=== PATIENT | male | born 1980 | race Caucasian/White ===

== ENCOUNTER → 2021-07-19 02:42 | Outpatient (CLI) | payer OTHER, SELFPAY ==
[2021-07-19 16:22] LABS: SARS-CoV-2 RNA PCR Negative
== END ==
PROVIDERS: PCP Nurse Practitioner Family; Visit Provider Internal Medicine Gastroenterology
DX: Z01.812 Encounter for preprocedural laboratory examination (principal); Z20.822 Contact with and (suspected) exposure to COVID-19
CPT/HCPCS: C9803; U0003; U0005

== ENCOUNTER 2021-07-21 08:32 | Outpatient (CLI) | payer OTHER, SELFPAY ==
--- NOTE | 2021-07-21 12:00 | NEURO_ITS ---
Impression: # Complains of numbness of hands. # Mild evolving Carpal Tunnel Syndrome, left more than right. # No ulnar neuropathy. # Normal needle/EMG exam. Nerve Conduction Studies Anti Sensory Summary Table Stim Site NR Peak (ms) P-T Amp (?V) Site1 Site2 Delta-P (ms) Dist (cm) Gianfranco (m/s) Left Median Anti Sensory (2-3nd Digit) Wrist 3.0 45.6 Wrist 2-3nd Digit 3.0 14.0 47 Wrist 3.1 60.9 Wrist 2-3nd Digit 3.0 14.0 47 Right Median Anti Sensory (2-3nd Digit) Wrist 3.3 48.0 Wrist 2-3nd Digit 3.3 14.0 42 Wrist 3.4 41.8 Wrist 2-3nd Digit 3.3 14.0 42 Left Radial Anti Sensory (Base 1st Digit) Wrist 2.0 23.0 Wrist Base 1st Digit 2.0 0.0 Right Radial Anti Sensory (Base 1st Digit) Wrist 2.3 24.4 Wrist Base 1st Digit 2.3 0.0 Left Ulnar Anti Sensory (5th Digit) Wrist 2.4 61.5 Wrist 5th Digit 2.4 14.0 58 Right Ulnar Anti Sensory (5th Digit) Wrist 2.3 22.7 Wrist 5th Digit 2.3 14.0 61 Motor Summary Table Stim Site NR Onset (ms) O-P Amp (mV) Site1 Site2 Delta-0 (ms) Dist (cm) Gianfranco (m/s) Left Median Motor (Abd Poll Brev) Wrist 3.5 3.7 Elbow Wrist 4.6 26.0 57 Elbow 8.1 3.4 Right Median Motor (Abd Poll Brev) Wrist 3.3 7.7 Elbow Wrist 4.7 27.0 57 Elbow 8.0 7.2 Left Ulnar Motor (Abd Dig Minimi) Wrist 2.3 6.7 A Elbow Wrist 4.9 31.0 63 A Elbow 7.2 5.3 Right Ulnar Motor (Abd Dig Minimi) Wrist 2.6 6.7 A Elbow Wrist 5.1 30.0 59 A Elbow 7.7 6.0 F Wave Studies NR F-Lat (ms) L-R F-Lat (ms) Left Median (Mrkrs) (Abd Poll Brev) 29.41 0.48 Right Median (Mrkrs) (Abd Poll Brev) 28.93 0.48 Left Ulnar (Mrkrs) (Abd Dig Min) 27.64 1.08 Right Ulnar (Mrkrs) (Abd Dig Min) 28.72 1.08 EMG Side Muscle Nerve Root Ins Act Fibs Amp Dur Recrt Comment Right 1stDorInt Ulnar C8-T1 Nml Nml Nml Nml Nml Right Ext Indicis Radial (Post Int) C7-8 Nml Nml Nml Nml Nml Right Ext Digitorum Radial (Post Int) C7-8 Nml Nml Nml Nml Nml Right BrachioRad Radial C5-6 Nml Nml Nml Nml Nml Right PronatorTeres Median C6-7 Nml Nml Nml Nml Nml Right Abd Poll Brev Median C8-T1 Nml Nml Nml Nml Nml Left 1stDorInt Ulnar C8-T1 Nml Nml Nml Nml Nml Left Ext Indicis Radial (Post Int) C7-8 Nml Nml Nml Nml Nml Left Ext Digitorum Radial (Post Int) C7-8 Nml Nml Nml Nml Nml Left BrachioRad Radial C5-6 Nml Nml Nml Nml Nml Left PronatorTeres Median C6-7 Nml Nml Nml Nml Nml Left Abd Poll Brev Median C8-T1 Nml Nml Nml Nml Nml MTDD
== END 2021-07-21 08:33 | disposition home or self-care (01) ==
PROVIDERS: PCP Nurse Practitioner Family; Visit Provider Nurse Practitioner Family
DX: R20.2 Paresthesia of skin (principal); G56.03 Carpal tunnel syndrome, bilateral upper limbs
CPT/HCPCS: 95886; 95911

== ENCOUNTER 2021-07-22 00:09 | Day surgery (SDC) | payer OTHER, SELFPAY ==
[2021-06-28 10:12] VITALS: BMI 33.5
[2021-07-22 08:30] VITALS: BP 122/81; PULSE 79; RESP 16; TEMP 36.8; O2SAT 98
[2021-07-22] MEDS: LACTATED RINGERS 1,000 ML 150 ML IV CONT (08:33)
--- NOTE | 2021-07-22 09:05 | P.PNAN_ITS ---
Anes - Initial Pre Proc Eval Procedure: Operation Date: 07/22/21 09:00 Proposed Procedures p Screening Colonoscopy - Jason Ferguson MD Date/Time: 07/22/21 09:05 Surgeon: Jason Ferguson MD Pre Op Diagnosis: hx of colon polyps, neoplasm Patient Data Age: 40 Gender: M Height: 1.85 m Weight: 109.8 kg Last Vital Signs Temp 36.8 C 07/22/21 08:30 Pulse 79 07/22/21 08:30 Resp 16 07/22/21 08:30 BP 122/81 07/22/21 08:30 Pulse Ox 98 07/22/21 08:30 Allergies Allergy/AdvReac Type Severity Reaction Status Date / Time No Known Allergies Allergy Verified 07/22/21 08:29 Home Medications Medication Instructions Recorded Confirmed Type No Home Medications 06/28/21 06/28/21 History Patient hx anesthesia problems: none Family hx anesthesia problems: none Results Review: All pre-operative results and documents have been reviewed as part of the pre-operative evaluation. [facility] Past Medical History Medical History (Updated 07/22/21 @ 09:05 by Alec Parra MD) Obesity Smoker Snores Surgical History Surgical History (Updated 07/22/21 @ 09:05 by Alec Parra MD) H/O colonoscopy Social History Social History Smoking packs per day: 1 Smoking cigarettes per day: 20.0 Years smoked: 23 Smoking pack-years: 23.00 Smoking status: Current every day smoker Tobacco type: cigarettes Alcohol intake: current Substance use: never Substance use type: does not use Living arrangements: with family Spiritual care concerns: No Anes - Eval Final PreProcedure Day of Procedure 07/22/21 09:05 Patient weight: obese Heart: regular rate and rhythm Lungs: clear to auscultation Airway: Mallampati scale class II Neurological: alert and oriented Last oral intake: >/= 8 hours ASA classification: III Emergent: no Anesthetic plan: proceed Anesthesia type and monitoring: general GIVS and standard monitoring Results Review: All pre-operative results and documents have been reviewed as part of the pre-operative evaluation. Informed Consent: The patient's anesthetic plan and its attendant risks and benefits were discussed with the patient/family/POA. Questions were solicited and answers provided to the satisfaction of the patient/family/POA.
--- NOTE | 2021-07-22 09:22 | P.CONGI_ITS ---
Assessment and Plan Assessment and plan (1) Encounter for screening colonoscopy: Code(s): Z12.11 - Encounter for screening for malignant neoplasm of colon Status: Acute Assessment and Plan: Patient presents for screening colonoscopy today. He may have had colon polyps 10 years ago. Further recommendations on follow-up will be given after endoscopy is accomplished. GI Consult Note Consult date/time: 07/22/21 09:22 HPI: Carson Bentley is a 40 year old male Presents for screening colonoscopy. Patient reports that his current weight appetite and bowel movements are normal. He denies abdominal pain. He has had no bleeding. Patient reports prior colonoscopy 10 years ago performed in [place]. He may have had colon polyps at that time. These records are not available for review. Patient presents today for neoplasia screening. Review of Systems Review of Systems: All systems reviewed & are unremarkable except as noted in HPI and below PMFSH Past Medical History Medical History (Updated 07/22/21 @ 09:23 by Jason Ferguson MD) Obesity Smoker Snores Surgical History Surgical History (Updated 07/22/21 @ 09:05 by Alec Parra MD) H/O colonoscopy Social History Social History Smoking packs per day: 1 Smoking cigarettes per day: 20.0 Years smoked: 23 Smoking pack-years: 23.00 Smoking status: Current every day smoker Tobacco type: cigarettes Alcohol intake: current Substance use: never Substance use type: does not use Living arrangements: with family Spiritual care concerns: No Meds Home Medications and Allergies Home Medications Medication Instructions Recorded Confirmed Type No Home Medications 06/28/21 06/28/21 History Allergies Allergy/AdvReac Type Severity Reaction Status Date / Time No Known Allergies Allergy Verified 07/22/21 08:29 Vital Signs Vital Signs - 24 hr 07/22/21 08:30 Temperature 98.2 F Pulse Rate 79 Respiratory Rate 16 Blood Pressure 122/81 Pulse Oximetry 98 Exam Narrative: Physical exam reveals patient to be alert. Vital signs stable. HEENT exam is unremarkable. Patient is anicteric. Lungs are clear to auscultation and percussion. Heart is without murmur or extra sounds. Abdominal exam bowel sounds are present soft nontender with no organomegaly. Digital external rectal exam is normal.
[2021-07-22 09:58] VITALS: BP 106/64; PULSE 62; RESP 13; O2SAT 94
[2021-07-22 10:08] VITALS: BP 106/62; PULSE 61; RESP 14; O2SAT 96
[2021-07-22 10:18] VITALS: BP 112/62; PULSE 57; RESP 20; O2SAT 97
== END 2021-07-22 10:25 | disposition home or self-care (01) ==
PROVIDERS: PCP Nurse Practitioner Family; Visit Provider Internal Medicine Gastroenterology
PROC: 0DJD8ZZ Inspection of Lower Intestinal Tract, Via Natural or Artificial Opening Endoscopic (ICD-10-PCS; CPT 45378; principal; 2021-07-22 09:00)
DX: Z12.11 Encounter for screening for malignant neoplasm of colon (principal); K64.8 Other hemorrhoids; F17.210 Nicotine dependence, cigarettes, uncomplicated; E66.9 Obesity, unspecified; Z68.31 Body mass index [BMI] 31.0-31.9, adult
CPT/HCPCS: 45378; C9803; J2704; J7120; U0003; U0005

== ENCOUNTER 2022-10-16 10:25 | Outpatient (CLI) | payer OTHER, SELFPAY ==
--- NOTE | 2022-10-16 | EST_ITS ---
Patient Info Name: Carson Bentley Age: 41 years : 1980 Gender: Male Ht: 73 in Wt: 283 lbs BSA: 2.62 m2 HR: 75 bpm BP: 116 / 72 mmHg Heart Rhythm: Sinus Rhythm Exam Date: 10/16/2022 11:13 AM Exam Location: [facility] Stress Patient Status: Outpatient Admit Date: 10/16/2022 Staff Ordering Physician: Warren, Carole PETTY Attending Provider: Warren, Carole PETTY Exercise Technologist: Sabina Bowser CT Nurse: KESHA SALGADO Exam Type: CA stress test treadmill Study Info Indications Z01.810 - Encounter for preprocedural cardiovascular examination A treadmill exercise stress test was performed. Summary 1. Normal sinus rhythm - normal ECG. 2. No abnormal ST/T wave changes with exercise. 3. Clinically and electrocardiographically negative exercise stress test at 85% of age predicted maximum heart rate. Protocol: [facility] Stress ECG Details Stage: REST Duration (min): 1 min : 40 sec Speed (mph): 0.0 Grade (%): 0 HR (bpm): 78 SBP (mmHg): 116 DBP (mmHg): 72 METS: --- Stage: REST Duration (min): 7 min : 27 sec Speed (mph): 0.0 Grade (%): 0 HR (bpm): 72 SBP (mmHg): 116 DBP (mmHg): 72 METS: --- Stage: STAGE 1 Duration (min): 1 min : 0 sec Speed (mph): 1.7 Grade (%): 10 HR (bpm): 93 SBP (mmHg): 116 DBP (mmHg): 72 METS: --- Stage: STAGE 1 Duration (min): 2 min : 0 sec Speed (mph): 1.7 Grade (%): 10 HR (bpm): 104 SBP (mmHg): 116 DBP (mmHg): 72 METS: --- Stage: STAGE 1 Duration (min): 3 min : 0 sec Speed (mph): 1.7 Grade (%): 10 HR (bpm): 109 SBP (mmHg): 144 DBP (mmHg): 53 METS: --- Stage: STAGE 2 Duration (min): 1 min : 0 sec Speed (mph): 2.5 Grade (%): 12 HR (bpm): 117 SBP (mmHg): 144 DBP (mmHg): 53 METS: --- Stage: STAGE 2 Duration (min): 2 min : 0 sec Speed (mph): 2.5 Grade (%): 12 HR (bpm): 126 SBP (mmHg): 139 DBP (mmHg): 58 METS: --- Stage: STAGE 2 Duration (min): 3 min : 0 sec Speed (mph): 2.5 Grade (%): 12 HR (bpm): 129 SBP (mmHg): 139 DBP (mmHg): 58 METS: --- Stage: STAGE 3 Duration (min): 1 min : 0 sec Speed (mph): 3.4 Grade (%): 14 HR (bpm): 137 SBP (mmHg): 188 DBP (mmHg): 70 METS: --- Stage: STAGE 3 Duration (min): 2 min : 0 sec Speed (mph): 3.4 Grade (%): 14 HR (bpm): 147 SBP (mmHg): 188 DBP (mmHg): 70 METS: --- Stage: STAGE 3 Duration (min): 3 min : 0 sec Speed (mph): 3.4 Grade (%): 14 HR (bpm): 154 SBP (mmHg): 160 DBP (mmHg): 74 METS: --- Stage: RECOVERY Duration (min): 0 min : 59 sec Speed (mph): 0.0 Grade (%): 0 HR (bpm): 133 SBP (mmHg): 160 DBP (mmHg): 74 METS: --- Stage: RECOVERY Duration (min): 1 min : 59 sec Speed (mph): 0.0 Grade (%): 0 HR (bpm):
== END 2022-10-16 10:26 | disposition home or self-care (01) ==
LOC: ANHCARD 10:30
PROVIDERS: PCP Nurse Practitioner Family; Visit Provider Nurse Practitioner Family
DX: R07.9 Chest pain, unspecified (principal)
CPT/HCPCS: 93017

== ENCOUNTER 2023-08-08 19:10 | Emergency (ER) | payer OTHER, SELFPAY ==
[2023-08-08] VITALS (11 sets, daily range): BP systolic 124–157; BP diastolic 74–98; PULSE 78–91; RESP 12–25; TEMP 37.1; O2SAT 96–98
--- NOTE | ~2023-08-08 | XR_ITS ---
EXAMINATION: XR chest 2V Exam Date/Time: 08/08/2023 19:35 CDT HISTORY: cough, pain X 2-3 DAYS Comparison: None. RESULT: Lines, tubes, and devices: None. Lungs and pleura: Clear. Cardiomediastinal silhouette: Normal. Other: No acute osseous or upper abdominal finding. IMPRESSION: No acute cardiopulmonary process. Reviewed, dictated and finalized at location K.
[2023-08-08 20:01] LABS: Influenza A QL RT-PCR Negative (Negative); Influenza B QL RT-PCR Negative (Negative); RSV RNA, RT-PCR Negative (Negative); SARS-CoV-2 RNA PCR Negative (Negative)
--- NOTE | 2023-08-08 20:41 | ED.GENADULT ---
[facility] - General Adult General Chief complaint: Upper Respiratory Infection Stated complaint: Bronchitits Time Seen by Provider: 08/08/23 20:14 Source: patient Mode of arrival: ambulatory Limitations: no limitations History of Present Illness HPI narrative: This is a 42-year-old male who presents to the ED with chief complaint of URI symptoms for the past couple of days. Reports that he usually gets bronchitis every year when the weather gets cold. He is a longstanding smoker. He does not have any formal diagnosis of COPD. Reports chest pain only when he coughs. Reports cough is mainly nonproductive. Denies fevers, chills or shortness of breath. Related Data Allergies Allergy/AdvReac Type Severity Reaction Status Date / Time No Known Allergies Allergy Verified 07/22/21 08:29 Review of Systems Review of Systems: All systems as dictated in [facility] [place] Past Medical History Medical History (Updated 08/09/23 @ 00:00 by Ivette Sanders) Obesity Smoker Snores Surgical History Surgical History (Updated 07/22/21 @ 09:05 by Alec Parra MD) H/O colonoscopy Social History Social History Smoking packs per day: 1 Smoking cigarettes per day: 20.0 Years smoked: 23 Smoking pack-years: 23.00 Smoking status: Current every day smoker Tobacco type: cigarettes Alcohol intake: current Substance use: never Substance use type: does not use Living arrangements: with family Spiritual care concerns: No Exam Narrative: GENERAL: Well-appearing, well-nourished, and in no acute distress. HEAD: Normocephalic, atraumatic. EYES: PERRLA and EOMI. ENT: Nares clear, no rhinorrhea or epistaxis. Mucous membranes moist. Oropharynx without tonsillar hypertrophy exudate or other lesions. NECK: Supple. No adenopathy or masses. CHEST: No respiratory distress. Inspiratory and expiratory wheezes heard throughout all lung jesus. Saturating 98% on room air. HEART: Regular rate and rhythm. No murmur heard. Normal peripheral pulses. ABDOMEN: Soft, nontender, nondistended, normal active bowel sounds. MSK: Normal range of motion. No edema. SKIN: Warm, dry, no rash. NEURO: Alert and oriented x3. No focal deficits. PSYCH: Normal mood and affect. Course Vital Signs Vital signs: Vital Signs Temperature 98.7 F 08/08/23 19:12 Pulse Rate 91 08/08/23 19:12 Respiratory Rate 18 08/08/23 19:12 Blood Pressure 143/87 H 08/08/23 19:12 Pulse Oximetry 96 08/08/23 19:12 Oxygen Delivery Room Air 08/08/23 19:12 Temperature 98.7 F 08/08/23 19:12 Pulse Rate 91 08/08/23 22:28 Respiratory Rate 19 08/08/23 22:28 Blood Pressure 124/74 08/08/23 22:28 Pulse Oximetry 98 08/08/23 22:28 Oxygen Delivery Room Air 08/08/23 20:29 Medical Decision Making MDM Narrative Medical decision making narrative: This is a 42-year-old male who presents to the ED with chief complaint of upper respiratory symptoms for the past couple of days. Vitals are normal. Exam shows inspiratory and expiratory wheezes throughout. He is a smoker. He gets bronchitis very frequently. PERC rule negative. Chest x-ray is without acute findings. Viral swabs are negative. Symptoms consistent with bronchitis. He improved greatly with hour-long breathing treatment here. Prescriptions for albuterol and Z-Fito given. Pt will be discharged in stable condition. Return precautions given and supportive measures discussed. Pt is understanding and agreeable with plan for discharge and follow-up with PCP. Vital Signs Vital Signs: Vital Signs Temperature 98.7 F 08/08/23 19:12 Pulse Rate 91 08/08/23 19:12 Respiratory Rate 18 08/08/23 19:12 Blood Pressure 143/87 H 08/08/23 19:12 Pulse Oximetry 96 08/08/23 19:12 Oxygen Delivery Room Air 08/08/23 19:12 Temperature 98.7 F 08/08/23 19:12 Pulse Rate 91 08/08/23 22:28 Respiratory Rate 19
[2023-08-08] MEDS: ALBUTEROL SULFATE NEB 2.5 MG/3 ML INH 10 MG INHALATION (20:55)
[2023-08-08] MEDS: IPRATROPIUM BR 0.02% INH SOLN 0.5 MG/2.5 ML VIAL 1.5 MG INHALATION (20:56)
== END 2023-08-08 22:30 | disposition home or self-care (01) ==
PROVIDERS: Emergency Medicine; Emergency Provider Physician Assistant; PCP Nurse Practitioner Family
DX: J40 Bronchitis, not specified as acute or chronic (principal); Z20.822 Contact with and (suspected) exposure to COVID-19; E66.9 Obesity, unspecified; Z68.36 Body mass index [BMI] 36.0-36.9, adult; F17.210 Nicotine dependence, cigarettes, uncomplicated
CPT/HCPCS: 71046; 87637; 94640; 99283

== ENCOUNTER 2023-08-26 13:59 | Emergency (ER) | payer OTHER, SELFPAY ==
--- NOTE | ~2023-08-26 | XR_ITS ---
EXAMINATION: XR chest 2V Exam Date/Time: 08/26/2023 14:35 FIRE PREVENTION CHIEF HISTORY: SOB DX'D WITH PNEUMONIA AND BRONCHITIS X 1 WEEK AGO Comparison: 08/08/2023. RESULT: Lines, tubes, and devices: Interbody devices at the cervical spine. Lungs and pleura: Clear. Cardiomediastinal silhouette: Stable. Other: No acute osseous or upper abdominal finding. IMPRESSION: No acute cardiopulmonary process. Reviewed, dictated and finalized at location K. PREVENTION CHIEF
--- NOTE | 2023-08-26 13:59 | ECG_ITS ---
Measurements Intervals [place] Rate: 80 P: 39 MO: 140 QRS: 36 QRSD: 86 T: 39 QT: 336 QTc: 388 Interpretive Statements SINUS RHYTHM NORMAL ECG NO PREVIOUS ECG AVAILABLE FOR COMPARISON Electronically Signed On 08-26-2023 14:34:17 MINCING MACHINE OPERATOR by Genaro Joiner D.O.
[2023-08-26 14:03] VITALS: BP 125/84; PULSE 86; RESP 18; TEMP 36.2; O2SAT 98
[2023-08-26 14:17] LABS: Basophils Percent Auto 0.4 % (0.2-1.2); Eosinophils Absolute Auto 0.1 K/mm3 (0-0.3); Eosinophils Percent Auto 1.9 % (0-4.4); Hematocrit 47.7 % (42.0-52.0); Hemoglobin 16.4 g/dL (14.0-18.0); Immature Granulocyte Absolute 0.02 K/mm3 (0.00-0.031); Immature Granulocyte Percent A 0.3 % (0-0.5); Lymphocytes Absolute Auto 1.69 K/mm3 (0.9-3.2); Lymphocytes Percent Auto 25.1 % (18.3-44.2); Mean Corpuscular HGB Conc 34.4 g/dl (32-36); Mean Corpuscular Hemoglobin 30.8 pg (26-34); Mean Corpuscular Volume 89.7 fl (80-100); Mean Platelet Volume 9.4 fl (7.4-10.4); Monocytes Absolute Auto 0.8 K/mm3 (0.1-0.6); Monocytes Percent Auto 12.1 % (2.6-8.5); Neutrophils Percent Auto 60.2 % (45.5-73.1); Platelet Count Result 204 k/mm3 (150-375); Red Blood Count 5.32 M/mm3 (4.6-6.20); Red Cell Distribution Width 12.4 % (11.5-14.5); White Blood Count 6.7 K/mm3 (4.5-10.0)
[2023-08-26 14:26] LABS: Alanine Aminotransferase 48 U/L (6-50); Albumin Level 4.3 g/dL (3.5-5.1); Alkaline Phosphatase 61 U/L (38-126); Anion Gap 8 mmol/L (8-16); Aspartate Amino Transferase 31 U/L (17-59); Bilirubin,Total 1.1 mg/dL (0.2-1.3); Blood Urea Nitrogen 13 mg/dL (9-20); Calcium 9.1 mg/dL (8.4-10.2); Carbon Dioxide 28 mmol/L (22-30); Chloride 103 mmol/L (98-107); Estimated CRCL calculation 164 ml/min; Estimated Glomerular Filt Rate > 60; Glucose 101 mg/dL (65-110); Potassium 3.9 mmol/L (3.4-5.0); Sodium 139 mmol/L (137-145)
--- NOTE | 2023-08-26 16:05 | ED.SOB ---
HPI - SOB/Dyspnea General Chief Complaint: Shortness of Breath/Dyspnea Stated Complaint: SOB Time Seen by Provider: 08/26/23 16:02 History of Present Illness HPI Narrative: Patient is a 42-year-old male who presents emergency department this afternoon complaining of persistent cough, shortness of breath and congestion. Patient states that he was seen here approximately 1 week ago and was told that he had a pneumonia and was sent home on a Z-Fito. Patient finished a full course of Cipro, however, he states that his symptoms have not completely resolved yet. Patient states that the cough and shortness of breath are mild but it congestion that is been bothering him. Patient denies any chest pain, nausea, vomiting, abdominal pain, dysuria, hematuria, constipation, diarrhea, melena, hematochezia, fevers or chills. Patient also denies any headaches, dizziness, lightheadedness, blurry visions, focal weakness, numbness and or tingling. There are no other modifying, alleviating, or precipitating factors at this time. Related Data Allergies Allergy/AdvReac Type Severity Reaction Status Date / Time No Known Allergies Allergy Verified 08/26/23 16:50 Review of Systems Review of Systems: All systems are reviewed and are negative unless stated otherwise in the HPI. PMFSH Past Medical History Medical History Obesity Smoker Snores Surgical History Surgical History H/O colonoscopy Social History Social History Smoking packs per day: 1 Smoking cigarettes per day: 20.0 Years smoked: 23 Smoking pack-years: 23.00 Smoking status: Current every day smoker Tobacco type: cigarettes Alcohol intake: current Substance use: never Substance use type: does not use Living arrangements: with family Spiritual care concerns: No Exam Narrative: General: Alert, awake, afebrile, in no acute distress. HEENT: PERRL, no rhinorrhea, no post nasal drip, oropharynx clear. Neck: Trachea midline, no JVD, no lymphadenopathy. Cardiovascular: Regular rate and rhythm, no murmurs, rubs or gallops, no peripheral edema. Respiratory: Clear to auscultation bilaterally, no tachypnea, no wheezing, no rhonchi, no rubs, no respiratory distress. Abdomen: Soft, nontender, nondistended, no rebound, no guarding, no peritoneal signs. Musculoskeletal: No joint swelling or deformity, normal muscle tone. Skin: No rashes or petechia, no signs of infection. Psychiatric: Alert and oriented, normal behavior and judgment for situation. Neurological: Alert and oriented to person, place, and time. Follows all commands. No focal deficits, speech is clear and fluent. Course Vital Signs Vital signs: Vital Signs Temperature 97.1 F L 08/26/23 14:03 Pulse Rate 86 08/26/23 14:03 Respiratory Rate 18 08/26/23 14:03 Blood Pressure 125/84 08/26/23 14:03 Pulse Oximetry 98 08/26/23 14:03 Temperature 97.1 F L 08/26/23 14:03 Pulse Rate 86 08/26/23 14:03 Respiratory Rate 18 08/26/23 14:03 Blood Pressure 125/84 08/26/23 14:03 Pulse Oximetry 98 08/26/23 14:03 MDM - SOB/Dyspnea MDM Narrative Medical decision making narrative: The patient was evaluated by myself in the emergency department. History is obtained from patient who is an independent historian and physical exam was performed. External medical records were reviewed at this time. IV was established and pertinent tests were ordered. EKG was obtained which revealed sinus rhythm at a rate of 80 beats per minute. No ST changes, T wave inversions or evidence of acute ischemia. EKG was independently interpreted by me and is currently pending official cardiology read. Laboratory results obtained revealing no acute process. Imaging studies obtained included a repeat xray which was independently interpre
[2023-08-26 16:47] VITALS: BP 134/91; PULSE 82; RESP 19; O2SAT 97
[2023-08-26 17:00] VITALS: BP 134/93; PULSE 80; RESP 16; O2SAT 97
== END 2023-08-26 17:00 | disposition home or self-care (01) ==
PROVIDERS: Emergency Provider Emergency Medicine; PCP Nurse Practitioner Family
DX: J21.9 Acute bronchiolitis, unspecified (principal); E66.9 Obesity, unspecified; Z68.37 Body mass index [BMI] 37.0-37.9, adult; F17.210 Nicotine dependence, cigarettes, uncomplicated; Z87.01 Personal history of pneumonia (recurrent)
CPT/HCPCS: 36415; 71046; 80053; 85025; 93005; 99284

== ENCOUNTER 2023-09-23 11:15 | Emergency (ER) | payer OTHER, SELFPAY ==
[2023-09-23] VITALS (16 sets, daily range): BP systolic 107–145; BP diastolic 75–88; PULSE 67–89; RESP 16–22; TEMP 36.2–36.4; O2SAT 94–100
--- NOTE | ~2023-09-23 | XR_ITS ---
EXAMINATION: XR chest 1V portable 09/23/2023 11:39 INDICATION: Shortness of breath, dyspnea. Congestion. PROCEDURE: AP portable chest COMPARISON: 08/16/2023 FINDINGS: The lungs are clear. The cardiomediastinal silhouette is within normal limits. There are no pleural effusions. There is no pneumothorax suspected. IMPRESSION: 1: NO ACUTE CARDIOPULMONARY DISEASE. Reviewed, dictated and finalized at location A. ING MACHINE FEEDER
--- NOTE | 2023-09-23 11:48 | ED.GENADULT ---
HPI - General Adult General Chief complaint: Shortness of Breath/Dyspnea Stated complaint: diff breathing Time Seen by Provider: 09/23/23 11:25 History of Present Illness HPI narrative: 42-year-old male presents emergency department for evaluation of worsening respiratory symptoms. Patient reports approximately 1 month ago he was diagnosed with a pneumonia / bronchitis and had been starting on albuterol prednisone and a Z-Fito. Patient states after about 2 weeks he did begin to feel improved but over the course of the last week he has had worsening respiratory symptoms. He states these feel mildly different he does have cough runny eyes and sneezing which is slightly different symptoms. But patient does report some shortness of breath with this. Related Data Allergies Allergy/AdvReac Type Severity Reaction Status Date / Time No Known Allergies Allergy Verified 08/26/23 16:50 Review of Systems Review of Systems: All systems reviewed & are unremarkable except as noted in HPI and below PMFSH Past Medical History Medical History Obesity Smoker Snores Surgical History Surgical History H/O colonoscopy Social History Social History Smoking packs per day: 1 Smoking cigarettes per day: 20.0 Years smoked: 23 Smoking pack-years: 23.00 Smoking status: Current every day smoker Tobacco type: cigarettes Alcohol intake: current Substance use: never Substance use type: does not use Living arrangements: with family Spiritual care concerns: No Exam Narrative: APPEARANCE: Well appearing, no pain, no distress, well-nourished. HEAD: normocephalic, atraumatic. EYES: PERRLA/EOMI, conjunctivae clear. NOSE: Normal no drainage EARS:TMS clear with good light reflex. THROAT: Pharynx clear, no exudate. NECK: Supple. No adenopathy, no masses. RESPIRATORY: Airway patent, respirations nonlabored. Clear to auscultation bilaterally, no rales, rhonchi, wheezing. CARDIOVASCULAR: Regular rate and rhythm without murmurs rubs or gallops. ABDOMINAL: Soft, nontender, nondistended, normal bowel sounds MUSCULOSKELETAL: Moves all extremities. Strength/ROM intact, No edema, No calf tenderness. NEURO: Alert. Cranial nerves II through XII intact. Grossly intact SKIN: Warm, dry. Normal Color Course Course Emergency Course: [age] old male presenting ED for evaluation of increased cough and congestion. Patient did test positive for COVID today. Chest x-ray shows no acute cardiopulmonary abnormality. Patient was provided Tessalon Perles and an albuterol inhaler for symptom control at home. Patient was encouraged to have close follow-up with his primary care physician. Vital Signs Vital signs: Vital Signs Temperature 97.1 F L 09/23/23 11:18 Pulse Rate 87 09/23/23 11:18 Respiratory Rate 16 09/23/23 11:18 Blood Pressure 145/88 H 09/23/23 11:18 Pulse Oximetry 100 09/23/23 11:18 Oxygen Delivery Room Air 09/23/23 11:18 Temperature 97.6 F 09/23/23 11:31 Pulse Rate 67 09/23/23 13:05 Respiratory Rate 16 09/23/23 13:05 Blood Pressure 128/85 09/23/23 13:05 Pulse Oximetry 98 09/23/23 13:05 Oxygen Delivery Room Air 09/23/23 11:44 Medical Decision Making Differential Diagnosis Differential Diagnosis: Influenza, RSV, COVID, pneumonia, bronchitis Vital Signs Vital Signs: Vital Signs Temperature 97.1 F L 09/23/23 11:18 Pulse Rate 87 09/23/23 11:18 Respiratory Rate 16 09/23/23 11:18 Blood Pressure 145/88 H 09/23/23 11:18 Pulse Oximetry 100 09/23/23 11:18 Oxygen Delivery Room Air 09/23/23 11:18 Temperature 97.6 F 09/23/23 11:31 Pulse Rate 67 09/23/23 13:05 Respiratory Rate 16 09/23/23 13:05 Blood Pressure 128/85 09/23/23 13:05 Pulse Oximetry 98 09/23/23 13:05 Oxygen Delive
[2023-09-23] MEDS: ALBUTEROL SULFATE NEB 2.5 MG/3 ML INH INHALATION (11:55)
[2023-09-23 12:22] LABS: Influenza A QL RT-PCR Negative (Negative); Influenza B QL RT-PCR Negative (Negative); RSV RNA, RT-PCR Negative (Negative); SARS-CoV-2 RNA PCR Positive (Negative)
--- NOTE | 2023-09-23 13:06 | PC.NURSE ---
pt lung sounds are clear bilaterally in all quad after breathing treatment.
== END 2023-09-23 13:07 | disposition home or self-care (01) ==
PROVIDERS: Emergency Provider Emergency Medicine; PCP Nurse Practitioner Family
DX: U07.1 COVID-19 (principal); E66.9 Obesity, unspecified; Z68.36 Body mass index [BMI] 36.0-36.9, adult; F17.210 Nicotine dependence, cigarettes, uncomplicated; Z87.01 Personal history of pneumonia (recurrent)
CPT/HCPCS: 71045; 87637; 94640; 99283

== ENCOUNTER 2024-08-14 13:15 | Outpatient (CLI) | payer OTHER, SELFPAY ==
--- NOTE | ~2024-08-14 | XR_ITS ---
EXAMINATION: XR chest 2V 08/14/2024 14:30 INDICATION: Dizziness. PROCEDURE: 2 view chest COMPARISON: 09/23/2023 FINDINGS: The lungs are clear. The cardiomediastinal silhouette is within normal limits. There are no pleural effusions. There is no pneumothorax suspected. IMPRESSION: 1: NO ACUTE CARDIOPULMONARY DISEASE. Reviewed, dictated and finalized at location B. ROOM ATTENDANT
[2024-08-14 14:40] LABS: Add Urine Microscopic? NO; Appearance Urine Clear (Clear); Bilirubin Urine Negative (Negative); Blood Urine Negative (Negative); Color Urine Yellow (Yellow); Glucose Urine UA Negative (Negative); Ketones Urine Negative (Negative); Leukocyte Esterase Ur Negative LEU/UL (Negative); Nitrate Urine Negative (Negative); Protein Urine Negative (Negative); Specific Grav Ur 1.021 (1.001-1.035); Urobilinogen Urine 0.2 mg/dL (<2.0)
[2024-08-14 15:07] LABS: Prothrombin Time 13.3 Seconds (11.1-14.7)
[2024-08-14 15:08] LABS: Partial Thromboplastin Time 25.5 Seconds (22.3-36.8)
== END 2024-08-14 13:16 | disposition home or self-care (01) ==
LOC: ANHLAB 13:21
PROVIDERS: PCP Nurse Practitioner Family; Visit Provider Internal Medicine Cardiovascular Disease
DX: Z01.812 Encounter for preprocedural laboratory examination (principal); R42 Dizziness and giddiness; R55 Syncope and collapse; R06.02 Shortness of breath; R60.0 Localized edema; R06.9 Unspecified abnormalities of breathing; I87.2 Venous insufficiency (chronic) (peripheral); I86.8 Varicose veins of other specified sites; Z11.59 Encounter for screening for other viral diseases; Z13.6 Encounter for screening for cardiovascular disorders
CPT/HCPCS: 36415; 71046; 81003; 85610; 85730

== ENCOUNTER 2025-07-13 22:27 | Observation (INO) | payer OTHER, SELFPAY ==
--- OUTSIDE RECORDS SUMMARY | 2023-05-21 06:43 | XMS_ITS | Continuity of Care Document ---
Author Organization [facility] Address [address] [place] [address] Phone Care Team Providers Care Clay Digger Name Role Phone Hussein DEJESUS MD, Aroldo Unavailable Breanna vailable Allergies, Adverse Reactions, Alerts Substance Reaction Status Criticality No Known Allergies Active No Inform ation Procedures Procedure Date Special Narrative Report Medical Testimony Deposition X-ray exam Cervical 4 Or 5 Views 2022 Independent Medical Examination CLAUDIA Pre Payment Advance Directives Directive Yes / No Effective Date File Name No Information Encounters Encounter Description Practice Location Reason(s) For Visit Diagnoses Date Provider Providers Copied on Encounter [email or web address], [address], [id number], [place] tel:[phone] [facility] No Information 3 Hussein Kendrick er. [address] [facility] [address], [place], [place], [id number] , [place]. tel: [phone] [facility], [address] [facility] [address], [place], [id number], [place] tel:[phone] [facility] No Information 3 uHssein Kendrick er. [address] [facility], [facility] [address], [place], [place], [id number] , [place]. tel: [phone] [email or web address], [address], [id number], [place] tel:[phone] [facility] No Information 3 Hussein Kendrick er. [address] [facility], [place] [address], [place], [place], [id number] , [place]. tel: [phone] Independent Medical Examination CLAUDIA [facility], [address], [id number], [place] [phone] [email or web address] Claudia (chief complaint)c ervical spine (chief complaint) Cervicalgia 3 Hussein Kendrick er. [address] [facility], [place] [address], [place], [place], [id number] , [place]. tel: [phone] [email or web address], [address], [id number], [place] tel:[phone] [facility] No Information 3 Hussein Kendrick er. [address] [facility], [place] [address], [place], [place], [id number] , [place]. tel: [phone] Family History Family Member Type Diagnosis Age At Onset No Information Immunizations Vaccine Date Status Comments Pneumo (2 yrs or older)(PPV) not administered Note: pt declined ; Source: Source Unspecified influenza, injectable, quadrivalent, (3 years or older) not administered Note: pt declined ; Source: Source Unspecified Payers Payer name Insurance type Covered green party ID Authoriza tion(s) No Information Social History Type Description Quantity Date Captured Comments Sex Male Smoking Status No Information Chief Complaint And Reason For Visit No Information Reason For Referral Reason For Referral No Information Plan Of Treatment Date Type Action Status Referral Ordered: X-ray exam Cervical 4 Or 5 Views spine, cervical ordered History Of Present Illness Encounter Date Complaint History Of Prese nt Illness cervical spine Dr. Kuldeep SavageBoard Certified Orthopedic Surgeon with Fellowship [facility] [address] [facility], [address] [address] Carson Bentley is a pleasant 42-year-old male who presents as part of an independent medical examination for a work-related injuries sustained on 10/31/2022. The patient reports that he has been experiencing progressively worsening neck pain over the past year. He denies any specific injury or accident. He was unable to work during this time due to neck pain. He reports neck pain radiating down to the left shoulder, and down the left upper extremity to the elbow at that time. He does note similar complaints to the right side; however, his symptoms were worse on the left than the right. He states that he was seen by Dr. Campbell for bilateral shoulder pain. He denies numbness below the left elbow at that time. He indicates numbness and sharp pain in the left upper extremity with certain movements. He reports popping in the left shoulder. He notes intermittent pain with turning his head to the right, which limited his range of motion in the neck. This would resolve after 3 to 4 days. The patient states he also had severe headaches and migraines at that time. He indicates that the his pain that prompted surgery was 50% neck pain and 50% bilateral upper extremity pain and shoulder pain. He reports that he was working until 12/14/2022, prior to his recent surgery. The patient has trialed injections and formal physical therapy for his neck pain. He states these did not improve his symptoms. He affirms that he has previously underwent an MRI scan that was preformed at [facility].The patient reports that he did spend 1 night in the surgery center following his surgery. He wore a hard cervical collar for 2.5 weeks following surgery. He is currently wearing a soft collar daily and at night. He reports that his numbness has resolved. He does note that his achiness will return after certain motions; however, he states he has not been moving too much. He states that he had a severe headache 1.5 weeks ago. He affirms that he is able to drive without difficulty. He is off of work at this time due to recovering from surgery.The patient has a history of bilateral carpal tunnel releases, which were handled under workers' compensation. He states that his bilateral hand symptoms have significantly improved since his surgery.The patient has been employed in multiple jobs at his workplace for approximately 7 to 8 years. One of his jobs required repetitive lifting and bending from a seated position. 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 Claudia Carson comes into the office for an CLAUDIA. Functional Status Date Functional Assessmen t No Information Instructions Date Instruction Additional Infor rudy Plan of Care:Carson brown is a pleasant 42-year-old male who is status post 2-level cervical disc replacement for a diagnosis of cervicalgia and radiculopathy. Related to Cervicalgia Assessments Type Assessment Date No Information Patient Care Teams Name Effective Dates (start - stop) Status Members No Information
--- OUTSIDE RECORDS SUMMARY | 2025-03-11 13:31 | XMS_ITS | Continuity of Care Document ---
Author Organization [facility] Address [address] [place] [address] [address] [place] [address] Phone Care Team Providers Care Lagging Machine Operator Name Role Phone Arslan PT,MPT,ATC, [place] Unavailable Unavai lable Procedures Procedure Date Therapeutic Activities Neuromuscular Re-Ed Therapeutic Exercise Therapeutic Activities Neuromuscular Re-Ed Therapeutic Exercise Therapeutic Activities Neuromuscular Re-Ed Therapeutic Exercise Therapeutic Activities Neuromuscular Re-Ed Therapeutic Exercise Therapeutic Activities Neuromuscular Re-Ed Therapeutic Exercise Therapeutic Activities Neuromuscular Re-Ed Therapeutic Exercise Therapeutic Activities Neuromuscular Re-Ed Therapeutic Exercise Progress Note Therapeutic Activities Neuromuscular Re-Ed Therapeutic Exercise Therapeutic Activities Neuromuscular Re-Ed Therapeutic Exercise Therapeutic Activities Neuromuscular Re-Ed Therapeutic Exercise Therapeutic Activities Neuromuscular Re-Ed Therapeutic Exercise Therapeutic Activities Neuromuscular Re-Ed Therapeutic Exercise Therapeutic Activities Neuromuscular Re-Ed Therapeutic Exercise PT Evaluation Moderate Complexity Therapeutic Activities Neuromuscular Re-Ed Progress Note Therapeutic Activities Neuromuscular Re-Ed Therapeutic Exercise Hot or Cold Pack Therapeutic Activities Neuromuscular Re-Ed Therapeutic Exercise Hot or Cold Pack Electrical Stimulation Therapeutic Activities Therapeutic Exercise Neuromuscular Re-Ed Manual Therapy Therapeutic Activities Neuromuscular Re-Ed Therapeutic Exercise Hot or Cold Pack Manual Therapy Therapeutic Activities Neuromuscular Re-Ed Therapeutic Exercise Manual Therapy Hot or Cold Pack Therapeutic Activities Neuromuscular Re-Ed Therapeutic Exercise Manual Therapy Hot or Cold Pack PT Evaluation Moderate Complexity Therapeutic Activities Neuromuscular Re-Ed Therapeutic Exercise Manual Therapy Advance Directives Directive Yes / No Effective Date File Name No Information Encounters Encounter Description Practice Location Reason(s) For Visit Diagnoses Date Provider Providers [facility], [place], [place], [id number], [place] tel:[phone] [employer] No Information 5 Arslan Kinney [place], [place]. [facility], [place], [place], [id number], tel:[phone] [place] No Information Feb-1 9-202 5 Oh[place]orge Kush. . Referring Provider: Sai Quinonez, [id number] [place] [address], [place], [address]. tel:[phone] [facility], [address] [facility] [address], [place], [place], [id number], tel:[phone] [place] No Information Feb-1 7-202 5 Oh[place]orge Kush. . Referring Provider: Sai Quinonez, [address] [place] [address], [place], [address]. tel:[phone] [facility], [address] [address], [place], [place], [id number], [place] tel:[phone] [place] No Information Feb-1 2-202 5 Oh[place]orge Kush. . Referring Provider: Sai Quinonez, [address] [place] [address], [place], [address]. tel:[phone] [facility], [address] [facility] [address], [place], [place], [id number], [place] tel:[phone] [place] No Information Feb-1 0-202 5 Oh[place]orge Kush. . Referring Provider: Sai Quinonez, [address] [place] [address], [place], [address]. tel:[phone] [facility], [address] [address], [place], [place], [id number], [place] tel:[phone] [place] No Information Feb-0 6-202 5 Oh[place]orge Kush. . Referring Provider: Sai Quinonez, [address] [place] [address], [place], [address]. tel:[phone] [facility], [address] [facility] [address], [place], [place], [id number], [place] tel:[phone] [place] No Information Feb-0 3-202 5 Ohnesorge Kush. . Referring Provider: Sai Quinonez, [address] [place] [address], [place], [address]. tel:[phone] [facility], [address], [place], [place], [id number], [place] tel:[phone] [place] No Information 5 Ohnesorge Kush. . Referring Provider: Sai Quinonez, [id number] [place] [address], [place], [address]. tel:[phone] [facility], [address], [place], [place], [id number], [place] tel:[phone] [place] No Information 5 Ohnesorge Kush. . Referring Provider: Sai Quinonez, [address] [place] [address], [place], [address]. tel:[phone] [facility], [address] [facility] [address], [place], [place], [id number], [place] tel:[phone] [place] No Information 5 Ohnesorge Kush. . Referring Provider: Sai Quinonez, [id number] [place] [address], [place], [address]. tel:[phone] [facility] [facility] [address], [place], [place], [id number], [place] tel:[phone] [place] No Information 5 Ohnesorge Kush. . Referring Provider: Sai Quinonez, [address], [place], [address]. tel:[phone] [facility], [address], [place], [place], [id number], [place] tel:[phone] [place] No Information 5 Ohnesorge Kush. . Referring Provider: Sai Quinonez, [address], [place], [address]. tel:[phone] [facility], [address], [place], [place], [id number], [place] tel:[phone] [place] No Information 5 Ohnesorge Kush. . Referring Provider: Sai Quinonez, [address] [place] [address], [place], [address]. tel:[phone] [facility], [address] [facility], [place], [place], [id number], [place] tel:[phone] [place] No Information 5 Ohnesorge Kush. . Referring Provider: Sai Quinonez, [id number] [place] [address], [place], [address]. tel:[phone] [facility], [address] [facility] [address], [place], [place], [id number], [place] tel:[phone] [place] No Information 5 Mcdaniels [place]. , [place], [place]. Referring Provider: Sai Quinonez, [id number] [place] [address], [place], [address]. tel:[phone] [facility] [facility] [address], [place], [place], [id number], [place] tel:[phone] [place] No Information 4 Jones Paty. . Referring Provider: Sai Quinonez, [address] [place] [address], [place], [address]. tel:[phone] [facility] [facility] [address], [place], [place], [id number], [place] tel:[phone] [place] No Information 4 Mcdaniels [place]. , [place], [place]. Referring Provider: Sai Quinonez, [address], [place], [address]. tel:[phone] [facility] [facility] [address], [place], [place], [id number], [place] tel:[phone] [place] No Information 4 Ohnesorge Kush. . Referring Provider: Sai Quinonez, [address], [place], [address]. tel:[phone] [facility], [address], [id number], tel:[phone] [place] No Information 4 [facility] Referring Provider: Sai Quinonez, [address] [place] [address], [place], [address]. tel:[phone] [facility] [address], [id number], tel:[phone] [place] No Information 4 [place], [place], . Referring Provider: Sai Quinonez, [address] [place] [address], [place], [address]. tel:[phone] [facility] [address] [place] [address], [id number], tel:[phone] [place] No Information 4 [place], . Referring Provider: Sai Quinonez, [address] [place] [address], [place], [address]. tel:[phone] [facility] [address], [id number], tel:[phone] [place] No Information 4 [facility] Referring Provider: Sai Quinonez, [address] [place] [address], [place], [address]. tel:[phone] Family History Family Member Type Diagnosis Age At Onset No Information Payers Payer name Insurance type Covered libertarian ID Authoriza tion(s) Virgin [place] SP [id number] ZAttorney Payer [facility] [id number] One [employer] - Align SP 00 Social History Type Description Quantity Date Captured Comments Sex Male Smoking Status No Information Chief Complaint And Reason For Visit No Information Reason For Referral Reason For Referral No Information History Of Present Illness Encounter Date Complaint History Of Prese nt Illness No Information Functional Status Date Functional Assessmen t No Information Instructions Date Instruction Additional Infor mation No Information Assessments Type Assessment Date No Information Patient Care Teams Name Effective Dates (start - stop) Status Members No Information
--- OUTSIDE RECORDS SUMMARY | 2025-05-23 04:27 | XMS_ITS | Continuity of Care Document ---
Author Organization [facility] Address [address] [place] [address] Phone Care Team Providers Care Inspector Publications Name Role Phone Yaya DEJESUS FACC, FSCAI, Gil Unavailable Unava ilable Yaya DEJESUS FACC, FSCAI, Gil Unavailable Unava ilable Procedures Procedure Date PM/ICD REMOTE TECH SERV PM DEVICE INTERROGATE REMOTE Advance Directives Directive Yes / No Effective Date File Name No Information Encounters Encounter Description Practice Location Reason(s) For Visit Diagnoses Date Provider Providers Copied on Encounter [facility] , [address] [place] [address], [id number], tel:[phone] [facility] [place] [facility] (primary) hypertension Yaya Choe. [address] , [address] [place] [address], [id number], . tel:[phone] Referring Provider: Дмитрий Mcfarlane [address]Mart[address] Mosqueda [address] [place] [address], [address]. tel:[phone] lting Provider: Дмитрий Mcfarlane [address] [place] [address], [id number]. tel:[phone] Family History Family Member Type Diagnosis Age At Onset No Information Payers Payer name Insurance type Covered green party ID Authoriza timarlon(s) [employer] [id number] Social History Type Description Quantity Date Captured [...]
--- NOTE | ~2025-07-13 | XR_ITS ---
Examination: XR chest 2V Clinical History: cp sob Comparison: 08/14/2024 Technique: PA and Lateral Findings: Left pacemaker. Cardiomediastinal silhouette normal size and configuration. Lungs clear. No acute bony abnormality. IMPRESSION: 1. No acute cardiopulmonary findings. Reviewed, dictated and finalized at location R.
[2025-07-13 22:30] VITALS: BP 170/89; PULSE 81; RESP 16; TEMP 36.4; O2SAT 97
--- NOTE | 2025-07-13 22:30 | ECG_ITS ---
Test Date: 2025-07-13 22:35:45 Measurements Intervals [place] Rate: 84 P: 46 VT: 145 QRS: 25 QRSD: 94 T: 50 QT: 356 QTc: 423 Interpretive Statements SINUS RHYTHM BASELINE WANDER- III, AVF, V1-V4 NORMAL ECG No previous ECG available for comparison Electronically Signed On 07-14-2025 06:13:29 CDT by Genaro Joiner D.O.
[2025-07-13 23:09] LABS: Hematocrit 45.5 % (42.0-52.0); Hemoglobin 16.1 g/dL (14.0-18.0); Immature Granulocyte Percent A 0.4 % (0-0.5); Lymphocytes Absolute Auto 2.08 K/mm3 (0.9-3.2); Mean Corpuscular HGB Conc 35.4 g/dl (32-36); Mean Corpuscular Hemoglobin 30.4 pg (26-34); Mean Corpuscular Volume 85.8 fl (80-100); Nucleated Red Blood Cells Absolute Auto 0.000 K/mm3 (0.0-0.012); Nucleated Red Blood Cells Perc 0.0 % (0.0-0.2); Platelet Count Result 191 k/mm3 (150-375); Red Blood Count 5.30 M/mm3 (4.6-6.20); White Blood Count 6.8 K/mm3 (4.5-10.0)
[2025-07-13 23:14] VITALS: PULSE 79
[2025-07-13 23:15] VITALS: O2SAT 99
[2025-07-13 23:21] LABS: Alanine Aminotransferase 52 U/L (6-50); Albumin Level 4.2 g/dL (3.5-5.1); Alkaline Phosphatase 60 U/L (38-126); Anion Gap 11 mmol/L (4-12); Aspartate Amino Transferase 34 U/L (17-59); Bilirubin,Total 0.7 mg/dL (0.2-1.3); Blood Urea Nitrogen 13 mg/dL (9-20); Calcium 9.1 mg/dL (8.4-10.2); Carbon Dioxide 23 mmol/L (22-30); Chloride 104 mmol/L (98-107); Estimated CRCL calculation 144 ml/min; Estimated Glomerular Filt Rate > 60; Glucose 149 mg/dL (65-110); INR 0.9; Lipase 63 U/L (23-300); Partial Thromboplastin Time 25.4 Seconds (22.3-36.8); Potassium 3.5 mmol/L (3.4-5.0); Prothrombin Time 12.7 Seconds (11.1-14.7); Sodium 138 mmol/L (137-145); Total Protein 7.2 g/dL (6.3-8.2)
--- OUTSIDE RECORDS SUMMARY | 2025-07-13 23:28 | XMS_ITS | Clinical Summary ---
Author Organization [facility] Address [address] [place] [address] Care Team Providers Care Enrichment Specialist Name Role Phone Blanco Campbell MD Unavailable Sai Quinonez MD Unavailable [phone] Horacio Torres MD Primary Care Provider Дмитрий Javier MD Unavailable Blanco Jain MD Unavailable Allergies No known active allergies Medications IBUPROFEN ORAL Take by mouth A ctive LORazepam (ATIVAN) 0.5 mg tabletIndicatio ns:anxiety Take 1 tablet (0.5 mg total) by mouth 3 (three) times a day as needed for anxiety 10 tablet Active Additional Information Patient not taking.Reported on 07/06/2025 Active Problems Problem Noted Date Diagnosed Date Panic disorder 02/10/2025 Moderate episode of recurrent major depressive d isorder 02/10/2025 Presence of cardiac pacemaker 08/18/2024 Overview (06/10/2025): [employer] [place] Dual pacemaker DOI: 08/18/24 OS Yaya Dx: Conrad arrhythmias, symptomatic pauses. [employer] remote monitoring IRA on CPAP 07/23/2024 Assessment & Plan (01/21/2025 9:17 AM CDT): - chronic, stable sleeps with CPAP most nights with no issues - will continue in this regard Dizziness 07/07/2024 Near syncope 07/07/2024 Shortness of breath 07/07/2024 Class 3 severe obesity due t o excess calories without serious comorbidity with body mass index (BMI) of 40.0 to 44.9 in adult 03/25/2024 Assessment & Plan (02/10/2025 10:04 AM CDT): BMI Follow-up includes: nutrition counseling, exercise counseling, and education provided. 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 Assessment & Plan (10/23/2024 9:11 AM BASE FILLER OPERATOR): BMI Follow-up includes: nutrition counseling, exercise counseling, and education provided. Assessment & Plan (07/23/2024 10:42 AM CDT): BMI Follow-up includes: nutrition counseling, exercise counseling, and education provided. Assessment & Plan (04/22/2024 9:49 AM CDT): BMI Follow-up includes: nutrition counseling, exercise counseling, and education provided. Wegovy sample given Assessment & Plan (03/25/2024 11:25 AM CDT): BMI Follow-up includes: nutrition counseling, exercise counseling, and education provided. Encounter for medical examination to establish c are 03/25/2024 Overview (03/25/2024): spinal fusion next week Assessment & Plan (03/25/2024 2:01 PM CDT): A(n) initial well visit to establish care has been performed today. Gina Song is not up to date on screening tests. He is in need of hepatitis B, C and Cholesterol screening. He is up to date on needed preventative vaccinations. We discussed healthy lifestyle habits, educational material has been given. Medications reviewed, changes documented as per the medical record and discussed with patient along with risks vs benefits. Return in 1 month Snoring 12/10/2023 Venous insufficiency 10/24/2021 Varicose veins with pain 07/11/2021 Leg edema 07/11/2021 Family history of hypertension 07/11/2021 Encounters Date Type Department Care Team Description 07/06/2025 2:45 PM CDT Office Visit [facility] Cardiology at [address] [place] [phone] Harvinder Briones MD Presence of cardiac pacemaker (Primary Dx); Shortness of breath 07/06/2025 Telephone [facility] Cardiology [address] [place] [address] [address] [place] [address] Harvinder Briones MD Cath at [facility] 06/10/2025 Orders Only [facility] Cardiology [address] [facility] [address] [place] [phone] Harvinder Briones MD Presence of cardiac pacemaker (Primary Dx); Bradyarrhythmia; Sinus pause 05/21/2025 7:45 AM CDT Ancillary Procedure [facility] Cardiology at [address] [place] [address] Presence of cardiac pacemaker 05/04/2025 10:00 AM CDT Office Visit [facility] at [address] [place] [phone] Harvinder Briones MD Presence of cardiac pacemaker (Primary Dx) 05/04/2025 Telephone [facility] Cardiology [address] [facility] [address] [place] [address] Harvinder Briones MD Device Checks from Last 3 Months Immunizations Immunization Administration Dates Next Due DTP 05/19/1985, 1,05/01/1980,03/03/1980, 0 Influenza, Unspecified 07/23/2024(Deferr ed: Patient Refused),10/08/2023(Deferred: Patient Refused),04/07/2023(Deferred: Patient Refused),10/08/2022(Deferred: Patient Refused) MMR 09/26/1991,01/29/1981 OPV 06/03/1981,08/11/1980,05/01/1980 ,03/03/1980 Tdap 05/29/2020,09/05/2016 Surgical History Surgery Date Site/Laterality Comments NECK SURGERY BACK SURGERY CARPAL TUNNEL RELEASE POSTERIOR FUSION LUMBAR SPINE 10/08/2023 - 10/07/2024 L4/5 INSERT / REPLACE / REMOVE PACEMAKER Medical History Medical History Date Comments Varicose veins of both lower extremities Cardiac pacemaker Sleep apnea Sick sinus syndrome (HCC) Shortness of breath Family History Medical History Relation Name Comments Plantar fasciitis Father Skin cancer Father No Known Problems Mother No Known Problems Sister Relation Name Status Comments Father Alive Mother Alive Sister Alive Social History Tobacco Use Types Packs/Day Years Used Date Smoking Tobacco: Former Cigarettes Passive Smoke Exposure: Past Smokeless Tobacco: Never PHQ-2 Answer Date Recorded PHQ-2 Total Score (If total score is 3 or more points, staff should administer the PHQ-9) 6 02/10/2025 PHQ-9 Answer Date Recorded PHQ-9 Total Score 18 02/10/2025 Sex and Gender Information Value Date Recorded Sex Assigned at Not on file Legal Sex 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 Gender Identity Not on file Sexual Orientation Not on file Obstetrics History Last Filed Vital Signs Vital Sign Reading Time Taken Comments Blood Pressure 126/78 07/06/2025 2:32 PM CDT Pulse 75 07/06/2025 2:32 PM CDT Temperature 36 C (96.8 F) 04/01/2025 2:09 PM CDT Respiratory Rate 18 04/01/2025 2:09 PM CDT Oxygen Saturation 98% 07/06/2025 2:32 PM CDT Inhaled Oxygen Concentration - - Weight 143.4 kg (316 lb 1.6 oz) 07/06/2025 2:32 PM CDT Height 185.4 cm (6' 1) 07/06/2025 2:32 PM CDT Body Mass Index 41.7 07/06/2025 2:32 PM CDT Plan of Treatment Upcoming Encounters Date Type Department Care Team (Latest Contact Info) Description 07/24/2025 3:50 PM CDT Hospital Encounter [facility] [address] [place] [phone] Jhonatan Naqvi MD [address] [facility] [address] [place] [address] Shortness of breath 07/24/2025 3:50 PM CDT - 07/24/2025 5:10 PM CDT Surgery [address] [phone] Jhonatan Naqvi MD [address] [facility] [address] [place], [place] [phone] LEFT HEART CATHETERIZATION WITH CORONARY ANGIOGRAPHY AND WITH OR WITHOUT LEFT VENTRICULOGRAM [address] Health Maintenance Due Date Last Done Comments Colon Cancer Screening-Colonoscopy 1980 HPV Vaccines (1 - 3-dose SCDM series) 2006 Regular Well Visit/Exam 18-64 03/25/2025 03/25/2024 Influenza Vaccine (#1) 2025 Depression Screening 02/10/2026 02/10/2025, 02/10/2025, 01/21/2025, Additional history exists DTaP/Tdap/Td Vaccine (8 - Td or Tdap) 05/29/2030 05/29/2020, 09/05/2016, 05/19/1985, Additional history exists Hepatitis B Screening Completed 01/21/2025 Hepatitis C Screening Completed 01/21/2025 Pneumococcal vaccine <65 Aged Out No longer eligible based on patient's age to complete this topic Varicella Vaccines Discontinued Procedures Procedure Name Priority Date/Time Associated Diagnosis Comments NM MPI SPECT (REST AND/OR STRESS) MULTIPLE STUDIES Schedule Routine, Read Routine (OP Routine) 05/21/2025 8:54 AM CDT Presence of cardiac pacemaker HEPATITIS C ANTIBODY Routine 01/21/2025 9:21 AM CDT Need for hepatitis C screening test from Last 3 Months or Most Recently Relevant to Health Maintenance Results * NM MPI SPECT (Rest and/or Stress) Multiple Studies (05/21/2025 8:54 AM CDT) Anatomical Region Laterality Modality Body N/A Electrocardiogra phy 05/21/2025 7:45 AM CDT Narrative 05/21/2025 4:48 PM CDT [facility] [address], [place] [address] [address] [facility] [address], [place] [address], [place] [address] P:[phone] P:[phone] MPI Imaging Report Patient Name: GINA SONG W : 1980 Study Date: 05/21/2025 7:45:00 AM Gender: M Tech: COREY LOVEMT Location: [facility] Provider: HARVINDER BRIONES Height(Cm): 185.4 BSA: Weight(Kg): 141.7 Heart Rate: 149 BMI: 41.22 Order Provider: HARVINDER BRIONES PHYSICIAN: Primary Care Physician: Dr. Torres. [facility] Physician: Harvinder Briones M.D.,F.A.C.C. Stress Supervision: Simone Domínguez M.D. Stress Interpreting Physician: Simone Domínguez M.D. Image Interpreting Physician: Simone Domínguez M.D. PROCEDURES: Pharmacologic SPECT Report: Myocardial perfusion imaging with Tc99M Sestamibi SPECT at rest and stress post regadenoson (Lexiscan) infusion. INDICATIONS: Chest Pain, Shortness Of Breath, Family Hx CAD, Former Smoker, and Z95.0 Presence of cardiac pacemaker. FINDINGS: Procedural Findings: One day rest/stress was used. Tc99m Sestamibi injected IV at rest was 12.8 millicuries 37.7 millicuries of Tc99M Sestamibi injected IV during Lexiscan stress Lexiscan 0.4mg administered IV over 10 seconds. Patient had no symptoms during stress test. Baseline heart rate was 66 BPM Maximum Heart Rate Achieved was: 103 BPM Baseline blood pressure was 115/89 mmHg Post Stress Blood Pressure was 111/72 mmHg Termination: Protocol complete. Resting ECG: Normal sinus rhythm . ST-elevation, consistent with early repolarization. Post ECG: No diagnostic ST changes. Arrhythmia: No arrhythmias seen. Perfusion Findings: Abnormal perfusion imaging - see below. Technical quality of study is excellent. Left ventricle cavity size at rest is normal. Left ventricle cavity size with stress is unchanged. A TID of 0.84 was automatically calculated. defect 1: Size is small. Severity is mild. Location of defect is in the apical lateral segment. Reversibility is full. Type of defect is ischemia. LV Function: Global left ventricular function is normal. Left ventricular ejection fraction is 65 %. CONCLUSIONS: Global left ventricular function is normal. Left ventricular ejection fraction is 65 %. Size is small. Severity is mild. Location of defect is in the apical lateral segment. Reversibility is full. Type of defect is ischemia. Myocardial perfusion imaging is abnormal. Negative EKG portion of stress test. Attenuation correction utilized for the interpretation of this study. Electronically Signed By: Blanco Domínguez MD 05/21/2025 4:30:29 PM CDT Electronically Signed By: Blanco Domínguez MD 05/21/2025 4:30:29 PM CDT Procedure Note Blanco Domínguez MD - 05/21/2025 [facility] [address], [place] [address] [address] [facility] [id number], [place], [place] [phone], [place] [address] P:[phone] P:[phone] MPI Imaging Report Patient Name: GINA SONG W : 1980 Study Date: 05/21/2025 7:45:00 AM Gender: M Tech: [facility] Location: [facility] Provider: HARVINDER BRIONES Height(Cm): 185.4 BSA: Weight(Kg): 141.7 Heart Rate: 149 BMI: 41.22 Order Provider: HARVINDER BRIONES PHYSICIAN: Primary Care Physician: Dr. Torres. [facility] Physician: Harvinder Briones M.D.,F.A.C.C. Stress Supervision: Simone Domínguez M.D. Stress Interpreting Physician: Simone Domínguez M.D. Image Interpreting Physician: Simone Domínguez M.D. PROCEDURES: Pharmacologic SPECT Report: Myocardial perfusion imaging with Tc99M Sestamibi SPECT at rest and stresspost regadenoson (Lexiscan) infusion. INDICATIONS: Chest Pain, Shortness Of Breath, Family Hx CAD, Former Smoker, and Z95.0Presence of cardiac pacemaker. FINDINGS: Procedural Findings: One day rest/stress was used. Tc99m Sestamibi injected IV at rest was 12.8 millicuries 37.7 millicuries of Tc99M Sestamibi injected IV during Lexiscan stress Lexiscan 0.4mg administered IV over 10 seconds. Patient had no symptoms during stress test. Baseline heart rate was 66 BPM Maximum Heart Rate Achieved was: 103 BPM Baseline blood pressure was 115/89 mmHg Post Stress Blood Pressure was 111/72 mmHg Termination: Protocol complete. Resting ECG: Normal sinus rhythm . ST-elevation, consistent with earlyrepolarization. Post ECG: No diagnostic ST changes. Arrhythmia: No arrhythmias seen. Perfusion Findings: Abnormal perfusion imaging - see below. Technical quality of study isexcellent. Left ventricle cavity size at rest is normal. Left ventricle cavity size withstress is unchanged. A TID of 0.84 was automatically calculated. defect 1: Size is small. Severity is mild. Location of defect is in the apicallateral segment. Reversibility is full. Type of defect is ischemia. LV Function: Global left ventricular function is normal. Left ventricular ejectionfraction is 65 %. CONCLUSIONS: Global left ventricular function is normal. Left ventricular ejectionfraction is 65 %. Size is small. Severity is mild. Location of defect is in the apicallateral segment. Reversibility is full. Type of defect is ischemia. Myocardial perfusion imaging is abnormal. Negative EKG portion of stress test. Attenuation correction utilized for the interpretation of this study. Electronically Signed By: Blanco Domínguez MD 05/21/2025 4:30:29 PM CDT Electronically Signed By: Blanco Domínguez MD 05/21/2025 4:30:29 PM CDT us Harvinder Briones MD IMG NM PROCEDURES Final Result * Hepatitis C antibody Blood (01/21/2025 9:21 AM CDT) Hep C Ab Nonreactive Nonreactive Comment: Interpretive Data Nonreactive: Antibodies to HCV not detected. Does NOT exclude the possibility of recent exposure to HCV. Equivocal: Equivocal for HCV antibodies. Supplemental molecular testing will be automatically performed to determine infection status in accordance with current CDC screening recommendations. Reactive: Positive for HCV antibodies. This may represent current or past HCV infection. Supplemental molecular testing will be automatically performed to determine current infection status in accordance with current CDC screening recommendations. Interpretive data was last revised on 2019. Blood 01/21/2025 9:21 AM CDT 01/21/2025 3:38 PM CDT us Horacio Torres MD LAB MICROBIOLOGY - GENERAL ORDERABLES Final Result [facility] [address] [facility] [place] [address] from Last 3 Months or Most Recently Relevant to Health Maintenance Insurance [facility] Care Teams Enrichment Specialist Relationship Specialty Start Date End Date Horacio Torres MD [address] [place], [place] [phone] PCP - General Family Medicine 03/25/24 [place] [address] [place] [address] Consulting Physician Orthopedic Surgery 03/25/24 [place] [address] [place] [address] Orthopedic Surgery 03/25/24 [place] [address] [place] [address] Consulting Physician Cardiovascular Disease 07/23/24 [place] [address] [facility] [address] [place] [address] Referring Physician Orthopedic Surgery 02/10/25
[2025-07-13 23:30] VITALS: BP 148/89; PULSE 75; RESP 17; O2SAT 97
[2025-07-13 23:33] LABS: Troponin I < 0.012 ng/mL (0.000-0.034)
[2025-07-13] MEDS: ASPIRIN 81 MG CHEWABLE TABLET 324 MG PO (23:38)
[2025-07-13 23:41] LABS: NT Pro B Type Natriuretic Pept 42 pg/mL (19.9-100)
--- NOTE | 2025-07-13 23:45 | ED_ITS ---
HPI - General Adult General Chief complaint: Chest Pain Stated complaint: sob / htn Time Seen by Provider: 07/13/25 22:56 History of Present Illness HPI narrative: Patient 44-year-old gentleman presents emergency department with chief complaint of chest tightness palpitations and shortness of breath. The patient reports he has had a recent stress test that was positive and reports he scheduled for a cardiac catheterization on at [place]. The patient reports he sees Dr. Carmona as his primary technical administrator patient reports that he has been having increasing shortness of breath has noticed his blood pressures been running high Related Data Allergies Allergy/AdvReac Type Severity Reaction Status Date / Time No Known Allergies Allergy Verified 07/13/25 22:28 Review of Systems 2 Review of Systems: A 10 system review of systems was completed on the patient and is negative except for what is stated in the HPI. Nursing and ancillary documentation was reviewed. PMFSH Past Medical History Medical History Snores Smoker Obesity Surgical History Surgical History H/O colonoscopy Social History Social History Smoking packs per day: 1 Smoking cigarettes per day: 20.0 Years smoked: 23 Smoking pack-years: 23.00 Smoking status: Current every day smoker Tobacco type: cigarettes Alcohol intake: current Substance use: never Substance use type: does not use Living arrangements: with family Spiritual care concerns: No Exam 2 Narrative: GENERAL: Well-appearing, well-nourished, and in no acute distress. HEAD: Normocephalic, atraumatic. EYES: PERRLA and EOMI. ENT: Nares clear, no rhinorrhea or epistaxis. Mucous membranes moist. NECK: Supple. CHEST: Clear to auscultation. No respiratory distress. HEART: Regular rate and rhythm. No murmur heard. Normal peripheral pulses. ABDOMEN: Soft, nontender, nondistended, normal active bowel sounds. EXTREMITIES: Normal range of motion. No edema. SKIN: Warm, dry, no rash. NEURO: No focal deficits. Alert and oriented x3. PSYCH: Normal mood and affect. Course Vital Signs Vital signs: Vital Signs Temperature 36.4 C L 07/13/25 22:30 Pulse Rate 81 07/13/25 22:30 Respiratory Rate 16 07/13/25 22:30 Blood Pressure 170/89 H 07/13/25 22:30 Pulse Oximetry 97 07/13/25 22:30 Oxygen Delivery Room Air 07/13/25 22:30 Temperature 36.4 C L 07/13/25 22:30 Pulse Rate 77 07/14/25 00:17 Respiratory Rate 24 H 07/14/25 00:17 Blood Pressure 140/83 07/14/25 00:17 Pulse Oximetry 97 07/14/25 00:17 Oxygen Delivery Room Air 07/13/25 23:15 Medical Decision Making MDM Narrative Medical decision making narrative: Differential diagnosis includes ACS, unstable angina, Laboratory studies were obtained on the patient which were within normal limits initial troponin was negative BNP was negative Chest x-ray showed no acute abnormality EKG showed sinus rhythm with no ST elevation or ST depression Given the patient's history and the current symptoms of the patient plan will be to admit the patient for observation Vital Signs Vital Signs: Vital Signs Temperature 36.4 C L 07/13/25 22:30 Pulse Rate 81 07/13/25 22:30 Respiratory Rate 16 07/13/25 22:30 Blood Pressure 170/89 H 07/13/25 22:30 Pulse Oximetry 97 07/13/25 22:30 Oxygen Delivery Room Air 07/13/25 22:30 Temperature 36.4 C L 07/13/25 22:30 Pulse Rate 77 07/14/25 00:17 Respiratory Rate 24 H 07/14/25 00:17 Blood Pressure 140/83 07/14/25 00:17 Pulse Oximetry 97 07/14/25 00:17 Oxygen Delivery Room Air 07/13/25 23:15 Lab Data 07/13/25 22:58 07/13/25 22:58 Labs: Lab Results 07/13/25 Range/Units 22:58 WBC 6.8 (4.5-10.0) K/mm3 RBC 5.30 (4.6-6.20) M/mm3 Hgb 16.1 (14.0-18.0) g/dL Hct 45.5 (42.0-52.0) % MCV 85.8 (80-100) fl MCH 30.4 (26-34) pg MCHC 35.4 (32-36) g/dl RDW 13.0 (11.5-14.5) % Plt Count 191 (150-375) k/mm3 MPV 9.4 (7.4-10.4) fl Immature Gran % (Auto) 0.4 (0-0.5) % Neut % (Auto) 59.0 (45.5-73.1) % Lymph % (Auto) 30.6 (18.3-44.2) % Eddy % (Auto) 8.1 (2.6-8.5) % Eos % (Auto) 1.5 (0-4.4) % Baso % (Auto) 0.4 (0.2-1.2) % Lymph # (Auto) 2.08 (0.9-3.2) K/mm3 Eddy # (Auto) 0.6 (0.1-0.6) K/mm3 Eos # (Auto) 0.1 (0-0.3) K/mm3 Baso # (Auto) 0.0 (0.0-0.1) K/mm3 Abs Immat Gran (auto) 0.03 (0.00-0.031) K/mm3 Absolute Neuts (auto) 4.0 (1.3-6.7) K/mm3 Absolute Nucleated RBC 0.000 (0.0-0.012) K/mm3 Nucleated RBC % 0.0 (0.0-0.2) % PT 12.7 (11.1-14.7) Seconds INR 0.9 APTT 25.4 (22.3-36.8) Seconds Sodium 138 (137-145) mmol/L Potassium 3.5 (3.4-5.0) mmol/L Chloride 104 (98-107) mmol/L Carbon Dioxide 23 (22-30) mmol/L Anion Gap 11 (4-12) mmol/L BUN 13 (9-20) mg/dL Creatinine 0.84 (0.7-1.3) mg/dL Estim Creat Clear Calc 144 ml/min Estimated GFR > 60 (59 - ) Glucose 149 H (65-110) mg/dL Calcium 9.1 (8.4-10.2) mg/dL Total Bilirubin 0.7 (0.2-1.3) mg/dL AST 34 (17-59) U/L ALT 52 H (6-50) U/L Alkaline Phosphatase 60 (38-126) U/L Troponin I < 0.012 (0.000-0.034) ng/mL NT-Pro-B Natriuret Pep 42 (19.9-100) pg/mL Total Protein 7.2 (6.3-8.2) g/dL Albumin 4.2 (3.5-5.1) g/dL Lipase 63 (23-300) U/L Discharge Plan Discharge Clinical Impression: Chest pain Patient Disposition: Still a Patient Condition: Stable Patient Language: Citizen Of [place] Prescriptions: No Action albuterol sulfate 90 mcg/actuation HFA aerosol inhaler 1 puff inhalation QID PRN (Reason: shortness of breath or wheezing) Qty: 6.7 0RF benzonatate 100 mg capsule 100 mg PO TID PRN (Reason: cough) Qty: 14 0RF azithromycin [Zithromax Z-Fito] 250 mg tablet See Rx Instructions .ROUTE .COMPLEX Qty: 6 0RF Rx Instructions: For 250 mg dose pack: take 500 mg today (day 1), then 250 mg for 4 days (days 2-5) albuterol sulfate 90 mcg/actuation HFA aerosol inhaler 2 puff inhalation QID PRN (Reason: shortness of breath or wheezing) Qty: 6.7 0RF Follow-up/Referrals: Warren,Carole TOP SPOTTER [Primary Care Provider]
[2025-07-14] VITALS (19 sets, daily range): BP systolic 121–151; BP diastolic 72–87; PULSE 60–97; RESP 12–24; TEMP 36.4–37; O2SAT 96–100; BMI 42.6
[2025-07-14] MEDS: NITROGLYCERIN SL 0.4 MG TABLET SUBLINGUAL (01:19)
--- NOTE | 2025-07-14 01:47 | ADMGEN ---
This patient, Carson Bentley, was admitted to IMU Room 213-01. Patient/family oriented to hospital policies and general routines including ID bracelet, bed and alarms, visiting hours, pain management, procedures, bathroom and other care routines, personal items, smoking policy, room service/diet, and visiting hours. Information on how to activate the Rapid Response Team has been discussed. Patient/Family are encouraged to report perceived risks to care and to ask questions if they do not understand what they are told or what they should do.
--- NOTE | 2025-07-14 01:55 | ECG_ITS ---
Test Date: 2025-07-14 02:06:12 Measurements Intervals [place] Rate: 68 P: 4 [place]: 132 QRS: 37 QRSD: 82 T: 29 QT: 362 QTc: 386 Interpretive Statements SINUS RHYTHM INCOMPLETE RIGHT BUNDLE BRANCH BLOCK ST ELEVATION IN DIFFUSE LEADS, PROBABLY EARLY REPOLARIZATION MINIMAL Q WAVES- INFERIOR LEADS BASELINE WANDER- V1 BORDERLINE ECG Compared to ECG 07/13/2025 22:35:45 NO SIGNIFICANT CHANGE Electronically Signed On 07-14-2025 06:22:18 CDT by Genaro Joiner D.O.
[2025-07-14 02:43] LABS: Troponin I < 0.012 ng/mL (0.000-0.034)
--- NOTE | 2025-07-14 05:18 | ECG_ITS ---
Test Date: 2025-07-14 05:42:36 Measurements Intervals [place] Rate: 60 P: 57 [place]: 175 QRS: 29 QRSD: 102 T: 27 QT: 389 QTc: 389 Interpretive Statements ELECTRONIC ATRIAL PACEMAKER INCOMPLETE RIGHT BUNDLE BRANCH BLOCK ST ELEVATION IN DIFFUSE LEADS- EARLY REPOLARIZATION MINIMAL Q WAVES- INFERIOR LEADS BORDERLINE ECG Compared to ECG 07/14/2025 02:06:12 ELECTRONIC ATRIAL PACEMAKER NOW PRESENT Electronically Signed On 07-14-2025 06:27:02 CDT by Geanro Joiner D.O.
[2025-07-14 05:27] LABS: Troponin I < 0.012 ng/mL (0.000-0.034)
--- NOTE | 2025-07-14 07:27 | PM.IMHP ---
H&P: HPI History of Present Illness Date/Time: 07/14/25 07:27 Chief Complaint: Chest pain Narrative: Patient is a 44-year-old male with a past medical history of symptomatic Bradyarrhythmias, permanent pacemaker, stent in the bilateral legs, spinal fusion, disc replacement C5-C6, smoking, obesity, obstructive sleep apnea, and presents to the ED because of chest pain. The patient reports that he has experienced shortness of breath for about a month. Patient reports that he follows up with the PCP, , who advised him to see a certified nursing assistant regarding his shortness of breath and chest pain. Patient saw Dr. Carmona, who suggested doing a nuclear stress test, which showed a small area of reversible ischemia, and advised following up with a coronary angiogram at [facility] next week. Meanwhile, yesterday, the patient was watching a game after eating at [employer]. The patient had chest pain associated with shortness of breath, and his BP was elevated to 160s as advised by his . The patient came to the ED. In the ED Trops were negative and patient had evidence of diffuse ST elevation. Cardiac was consulted. is his primary certified nursing assistant. Review of Systems Review of Systems: A 10 system review of systems was completed on the patient and is negative except for what is stated in the HPI. Nursing and ancillary documentation was reviewed. All systems reviewed & are unremarkable except as noted in HPI and below PMFSH Past Medical History Medical History Snores Smoker Obesity Surgical History Surgical History H/O colonoscopy Social History Social History Smoking packs per day: 1 Smoking cigarettes per day: 20.0 Years smoked: 23 Smoking pack-years: 23.00 Smoking status: Former smoker Tobacco type: cigarettes Alcohol intake: never Substance use: never Substance use type: does not use Lack of Transportation: No Lack of Food: Never True Current Housing: I Have Housing Concerned About Future Housing: No Difficulty Paying Gas/Electric Bills: No Difficulty Paying for Meds: No Currently Unemployed: No Education: Associate Degree Difficulty w/ Childcare or Family Care: No Living arrangements: with family Spiritual care concerns: No Meds Home Medications and Allergies Home Medications ?Medication ?Instructions ?Recorded ?Confirmed ?Type No Home Medications 07/14/25 07/14/25 History Allergies Allergy/AdvReac Type Severity Reaction Status Date / Time No Known Allergies Allergy Verified 07/13/25 22:28 Vital Signs Vital Signs - 24 hr 07/13/25 22:30 07/13/25 23:14 07/13/25 23:15 Temperature 97.5 F L Pulse Rate 81 79 Respiratory Rate 16 Blood Pressure 170/89 H Pulse Oximetry 97 99 Oxygen Delivery Room Air Room Air 07/13/25 23:30 07/14/25 00:02 07/14/25 00:17 Temperature Pulse Rate 75 76 77 Respiratory Rate 17 17 24 H Blood Pressure 148/89 H 145/87 H 140/83 Pulse Oximetry 97 96 97 Oxygen Delivery 07/14/25 01:18 07/14/25 01:35 07/14/25 01:39 Temperature 98.0 F Pulse Rate 77 71 97 Respiratory Rate 22 H 14 20 Blood Pressure 151/84 H 134/72 139/80 Pulse Oximetry 97 97 97 Oxygen Delivery 07/14/25 02:00 07/14/25 02:50 07/14/25 03:20 Temperature Pulse Rate 68 68 Respiratory Rate 20 Blood Pressure Pulse Oximetry 97 Oxygen Delivery Room Air Autopap 07/14/25 03:22 07/14/25 03:22 07/14/25 04:00 Temperature 98.2 F Pulse Rate 64 64 64 Respiratory Rate 20 16 Blood Pressure 128/75 Pulse Oximetry 97 99 Oxygen Delivery Room Air 07/14/25 06:00 Temperature Pulse Rate 68 Respiratory Rate Blood Pressure Pulse Oximetry Oxygen Delivery Exam Narrative: GENERAL: Well-appearing, well-nourished, and in no acute distress. HEAD: Normocephalic, atraumatic. EYES: PERRLA and EOMI. ENT: Nares clear, no rhinorrhea or epistaxis. Mucous membranes moist. NECK: Supple. CHEST: Clear to auscultation. No respiratory distress. HEART: Regular rate and rhythm. No murmur heard. Normal peripheral pulses. ABDOMEN: Soft, nontender, nondistended, normal active bowel sounds. EXTREMITIES: Normal range of motion. No edema. SKIN: Warm, dry, no rash. NEURO: No focal deficits. Alert and oriented x3. PSYCH: Normal mood and affect. Const: General: comfortable, no acute distress, alert and awake Orientation/consciousness: patient oriented x3 Other: Obese HENMT: Head: normal to inspection Eyes: General: appearance normal, both eyes and all related structures Pupils: Equal, round and reactive pupils present Neck: Neck: normal visual inspection, supple and no JVD Carotids: normal carotid upstroke Resp: Effort & Inspection: normal respiratory effort Auscultation: clear to auscultation bilaterally Cardio: Rate: regular rate Rhythm: regular rhythm Heart sounds: S1 normal heart sound present, S2 normal heart sound present and no murmurs Other: no reproducible chest wall pain to palpation GI: Auscultation: normal bowel sounds Skin: General skin exam: normal color Neuro: General: patient oriented x3 Cranial nerves: Yes Equal, round and reactive pupils present Extrem: General: normal to inspection Psych: Appearance: grossly normal Mental Status: mental status grossly normal H&P: Results Labs Labs: Short CBC 07/13/25 Range/Units 22:58 WBC 6.8 (4.5-10.0) K/mm3 Hgb 16.1 (14.0-18.0) g/dL Hct 45.5 (42.0-52.0) % Plt Count 191 (150-375) k/mm3 BMP 07/13/25 22:58 Sodium 138 Potassium 3.5 Chloride 104 Carbon Dioxide 23 BUN 13 Creatinine 0.84 Glucose 149 H Calcium 9.1 Cardiac Enzymes 07/13/25 07/14/25 07/14/25 Range/Units 22:58 01:58 04:24 Troponin I < 0.012 < 0.012 < 0.012 (0.000-0.034) ng/mL Liver Function 07/13/25 Range/Units 22:58 Total Bilirubin 0.7 (0.2-1.3) mg/dL AST 34 (17-59) U/L ALT 52 H (6-50) U/L Alkaline Phosphatase 60 (38-126) U/L Albumin 4.2 (3.5-5.1) g/dL Assessment and Plan Assessment and plan (1) Chest pain: Code(s): R07.9 - Chest pain, unspecified Status: Acute Assessment and Plan: Atypical chest pain Obstructive sleep apnea managed with CPAP Nuclear stress test positive for reversible ischemia Schedule a coronary angiogram at [facility] next week Ordered echocardiogram Discussed with Dr. Briones by cardiology team History of Conrad arrhythmia and permanent pacemaker EKG shows diffuse ST elevation Tropes negative Order HbA1c and lipid profile (2) Sleep apnea: Code(s): G47.30 - Sleep apnea, unspecified Status: Acute Assessment and Plan: Continue CPAP Plan Code full code DVT prophylaxis: Lovenox 40 mg subQ Disposition: Pending echo and possible discharge tomorrow Hospitalist [facility] Advance Care Plan I have confirmed that the patient's Advanced Care Plan is present, code status is documented, or surrogate decision maker is listed in patient medical record.: Yes Medication Reconciliation I have utilized all available resources to obtain, update and review the patients current medications (includes all prescriptions, OTC, herbals, cannabis, and nutritional supplements).: Yes
[2025-07-14 09:06] LABS: CRP 0.8 mg/dL (<1.0)
[2025-07-14 09:12] LABS: Troponin I < 0.012 ng/mL (0.000-0.034)
[2025-07-14] MEDS: ASPIRIN 81 MG CHEWABLE TABLET PO (09:14)
--- NOTE | 2025-07-14 10:07 | P.CONCA_ITS ---
<Statement entered by George Markham MD - 07/14/25 10:45> This documentation has been reviewed and approved. Patient's of past medical history presenting symptoms reviewed with the rounding nurse practitioner. Agree with assessment and recommendations. Assessment and Plan Assessment and plan (1) Chest pain: Code(s): R07.9 - Chest pain, unspecified Status: Acute Assessment and Plan: Atypical chest pain. He has been ruled out for acute MS with negative serial troponin levels. His EKG did show diffuse ST elevation which likely represents early repolarization given the lack of anginal chest pain and negative cardiac enzymes. His symptoms are atypical and not consistent with accelerating angina, therefore we will continue with the plan for outpatient angiogram at [facility] next week. I discussed this plan with Dr. Briones who is his established cardiolgoist. History of Present Illness History of Present Illness Consult date/time: 07/14/25 10:07 Requesting physician: Dhruv Mg MD Consult reason: chest pain Reason For Visit: Chest pain Narrative: Carson Bentley is a 44 year old male with history of symptomatic bradyarrhythmias and permanent pacemaker ([employer] device), morbid obesity, and sleep apnea. He presents to the hospital with complaints of abdominal pain, lightheadedness, and labored breathing. He reports developing some abdominal pain after eating a meal yesterday evening. Later on in the evening he felt light headed and states his breathing felt labored. He does report a sensation of chest tightness associated with feeling his heart flutter. He has been having these symptoms for several months which prompted a nuclear stress test to be performed. Stress test showed a small area of reversible ischemia, therefore he has been scheduled for a coronary angiogram at [facility] next week. At the time of my evaluation he does report ongoing chest tightness but is comfortable and has no other complaints. Review of Systems 2 Review of Systems: All systems reviewed & are unremarkable except as noted in HPI and below PMFSH Past Medical History Medical History Snores Smoker Obesity Surgical History Surgical History H/O colonoscopy Social History Social History Smoking packs per day: 1 Smoking cigarettes per day: 20.0 Years smoked: 23 Smoking pack-years: 23.00 Smoking status: Former smoker Tobacco type: cigarettes Alcohol intake: never Substance use: never Substance use type: does not use Lack of Transportation: No Lack of Food: Never True Current Housing: I Have Housing Concerned About Future Housing: No Difficulty Paying Gas/Electric Bills: No Difficulty Paying for Meds: No Currently Unemployed: No Education: Associate Degree Difficulty w/ Childcare or Family Care: No Living arrangements: with family Spiritual care concerns: No Meds Home Medications and Allergies Home Medications ?Medication ?Instructions ?Recorded ?Confirmed ?Type No Home Medications 07/14/25 07/14/25 H istory Allergies Allergy/AdvReac Type Severity Reaction Status Date / Time No Known Allergies Allergy Verified 07/13/25 22:28 Vital Signs Vital Signs - 24 hr 07/13/25 22:30 07/13/25 23:14 07/13/25 23:15 Temperature 36.4 C L Pulse Rate 81 79 Respiratory Rate 16 Blood Pressure 170/89 H Pulse Oximetry 97 99 Oxygen Delivery Room Air Room Air 07/13/25 23:30 07/14/25 00:02 07/14/25 00:17 Temperature Pulse Rate 75 76 77 Respiratory Rate 17 17 24 H Blood Pressure 148/89 H 145/87 H 140/83 Pulse Oximetry 97 96 97 Oxygen Delivery 07/14/25 01:18 07/14/25 01:35 07/14/25 01:39 Temperature 36.7 C Pulse Rate 77 71 97 Respiratory Rate 22 H 14 20 Blood Pressure 151/84 H 134/72 139/80 Pulse Oximetry 97 97 97 Oxygen Delivery 07/14/25 02:00 07/14/25 02:50 07/14/25 03:20 Temperature Pulse Rate 68 68 Respiratory Rate 20 Blood Pressure Pulse Oximetry 97 Oxygen Delivery Room Air Autopap 07/14/25 03:22 07/14/25 03:22 07/14/25 04:00 Temperature 36.8 C Pulse Rate 64 64 64 Respiratory Rate 20 16 Blood Pressure 128/75 Pulse Oximetry 97 99 Oxygen Delivery Room Air 07/14/25 06:00 07/14/25 08:00 Temperature 36.9 C Pulse Rate 68 63 Respiratory Rate 12 Blood Pressure 121/75 Pulse Oximetry 100 Oxygen Delivery Exam 2 Const: General: comfortable, no acute distress, alert and awake O rientation/consciousness: patient oriented x3 Other: Obese HENMT: Head: normal to inspection Eyes: General: appearance normal, both eyes and all related structures P upils: Equal, round and reactive pupils present Neck: Neck: normal visual inspection, supple and no JVD Carotids: normal carotid upstroke Resp: Effort & Inspection: normal respiratory effort Auscultation: clear to auscultation bilaterally Cardio: Rate: regular rate Rhythm: regular rhythm Heart sounds: S1 normal heart sound present, S2 normal heart sound present and no murmurs O ther: no reproducible chest wall pain to palpation GI: Auscultation: normal bowel sounds Skin: General skin exam: normal color Neuro: General: patient oriented x3 Cranial nerves: Yes Equal, round and reactive pupils present Extrem: General: normal to inspection Psych: Appearance: grossly normal Mental Status: mental status grossly normal Results Labs and Meds 07/13/25 22:58 07/13/25 22:58 Lab results: Cardiac Enzymes 07/13/25 07/14/25 07/14/25 Range/Units 22:58 01:58 04:24 AST 34 (17-59) U/L Troponin I < 0.012 < 0.012 < 0.012 (0.000-0.034) ng/mL 07/14/25 Range/Units 08:45 AST (17-59) U/L Troponin I < 0.012 (0.000-0.034) ng/mL Coagulation 07/13/25 Range/Units 22:58 PT 12.7 (11.1-14.7) Seconds APTT 25.4 (22.3-36.8) Seconds CBC 07/13/25 Range/Units 22:58 WBC 6.8 (4.5-10.0) K/mm3 RBC 5.30 (4.6-6.20) M/mm3 Hgb 16.1 (14.0-18.0) g/dL Hct 45.5 (42.0-52.0) % Plt Count 191 (150-375) k/mm3 Lymph # (Auto) 2.08 (0.9-3.2) K/mm3 [place] # (Auto) 0.6 (0.1-0.6) K/mm3 Eos # (Auto) 0.1 (0-0.3) K/mm3 Baso # (Auto) 0.0 (0.0-0.1) K/mm3 Comprehensive Metabolic Panel 07/13/25 Range/Units 22:58 Sodium 138 (137-145) mmol/L Potassium 3.5 (3.4-5.0) mmol/L Chloride 104 (98-107) mmol/L Carbon Dioxide 23 (22-30) mmol/L BUN 13 (9-20) mg/dL Creatinine 0.84 (0.7-1.3) mg/dL Glucose 149 H (65-110) mg/dL Calcium 9.1 (8.4-10.2) mg/dL AST 34 (17-59) U/L ALT 52 H (6-50) U/L Alkaline Phosphatase 60 (38-126) U/L Total Protein 7.2 (6.3-8.2) g/dL Albumin 4.2 (3.5-5.1) g/dL Intake and Output 07/13/25 07/14/25 07/14/25 23:59 07:59 15:59 Intake Total 100 Output Total 0 Balance 100 Intake: Oral 100 Output: Urine 0 Patient Weight 07/14/25 23:59 Weight 146.7 kg
[2025-07-15] VITALS (11 sets, daily range): BP systolic 131–140; BP diastolic 74–82; PULSE 60–82; RESP 14–18; TEMP 36.7–37.1; O2SAT 97–100
--- NOTE | 2025-07-15 | ECHO_ITS ---
Patient Info Name: Carson Bentley Age: 44 years : 1980 Gender: Male Ht: 73 in Wt: 320 lbs BSA: 2.80 m2 HR: 62 bpm BP: 131 / 77 mmHg Heart Rhythm: Sinus Rhythm Technical Quality: Good Exam Date: 07/15/2025 10:12 AM Patient Status: I Admit Date: 07/14/2025 Exam Type: CA echo dop color flow w con Complete two-dimensional, color flow and Doppler transthoracic echocardiogram is performed with contrast to opacify the left ventricle and to improve the deliniation of the left ventricle endocardial borders. Staff Referring Physician: Nic Heard MD Certified Athletic Trainer: Chavez Brasher III Attending Provider: Razia Esteves Contrast/Agitated Saline Contrast/Ag. Saline: Definity Amount: 2.00 ml Administered By: Chavez Brasher III Existing IV Access: Yes IV Access Condition: patent with no signs of infiltration Summary 1. Definity contrast used to improve visualization. 2. Normal left ventricular size, vigorous systolic function no regional wall motion abnormalities. 3. Normal diastolic function. 4. No valvular disease. Left Ventricle Left ventricular chamber dimension is normal. Left ventricular systolic function is normal, estimated at 65-70. The left ventricular diastolic function is normal. Right Ventricle Right ventricular chamber dimension is normal. Left Atria Left atrial chamber dimension is normal. Right Atria Right atrial chamber dimension is normal. Aortic Valve The aortic valve is normal. Pulmonic Valve The pulmonic valve is not well visualized. Mitral Valve The mitral valve has normal leaflets. Tricuspid Valve The tricuspid valve leaflets are normal. Pericardium/Pleural The pericardium appears normal. Aorta The aortic root size at the sinus of Valsalva is normal. Left Ventricular Outflow Tract Name Value Normal LVOT 2D LVOT Diameter 2.6 cm LVOT Doppler LVOT Peak Velocity 137 cm/s LVOT Peak Gradient 7 mmHg LVOT Mean Gradient 4 mmHg LVOT VTI 27 cm LVOT VTI/AV VTI Ratio 1.1 LVOT Stroke Volume 147 ml LVOT CO 9.9 l/min LVOT CI 3.5 l/min/m2 Pulmonic Valve Name Value Normal PV Doppler PV Peak Velocity 113 cm/s PV Peak Gradient 5 mmHg PV Mean Gradient 3 mmHg Mitral Valve Name Value Normal MV Doppler MV Peak Gradient 4 mmHg MV Mean Gradient 2 mmHg MV Area (Cont Eq VTI) 4.9 cm2 MV Diastolic Function MV E Peak Velocity 88 cm/s MV A Peak Velocity 69 cm/s MV E/A 1.3 MV Decel Time (PW) 276 ms MV Annular TDI MV E/e' (Septal) 7.2 MV E/e' (Lateral) 6.8 MV E/e' (Average) 7.0 Tricuspid Valve Name Value Normal TV Regurgitation Doppler TR Peak Velocity 236 cm/s TR Peak Gradient 22 mmHg Estimated PAP/RSVP RA Pressure 10 mmHg <=5 PA Systolic Pressure 32 mmHg <36 RV Systolic Pressure 32 mmHg <36 TV Annular TDI TV Lateral Mary Anne s' Velocity 12.5 cm/s >=9.5 Aortic Valve Name Value Normal AV Doppler AV Peak Velocity 135 cm/s AV Peak Gradient 7 mmHg AV Mean Gradient 4 mmHg AV VTI 25 cm AV Area (Cont Eq VTI) 5.8 cm2 >=3.0 AV Area (Cont Eq Gianfranco) 5.5 cm2 AV DI (Gianfranco) 1.01 AV Regurgitation 2D LVOT Area 5.4 cm2 Ventricles Name Value Normal LV Dimensions 2D/MM IVS Diastolic Thickness (2D) 0.8 cm 0.6-1.0 LVID Diastole (2D) 4.8 cm 4.2-5.8 LVIW Diastolic Thickness (2D) 0.9 cm 0.6-1.0 LVID Systole (2D) 3.0 cm 2.5-4.0 LVOT Diameter 2.6 cm LV Mass (2D Cubed) 134.47 g 88.00-224.00 LV Mass Index (2D Cubed) 48 g/m2 49-115 Relative Wall Thickness (2D) 0.37 <=0.42 LV Fractional Shortening/Ejection Fraction 2D/MM LV Fractional Shortening (2D) 37 % 25-43 LV EF (2D Teichholz) 67 % LV Diastolic Volume (4C MOD) 135 ml LV EF (4C MOD) 70 % LV Diastolic Volume (2C MOD) 128 ml LV EF (2C MOD) 70 % LV Diastolic Volume (BP MOD) 133 ml 62-150 LV Diastolic Volume Index (BP MOD) 48 ml/m2 34-74 LV Systolic Volume (BP MOD) 42 ml 21-61 LV Systolic Volume Index (BP MOD) 15 ml/m2 11-31 LV EF (BP MOD) 68 % 52-72 LV Diastolic Length (4C) 8.8 cm LV Systolic Length (4C) 7.2 cm LV Stroke Volume (4C MOD) 94 ml Atria Name Value Normal LA Dimensions LA Volume (4C A-L) 61 ml LA Volume (BP A-L) 56 ml RA Dimensions RA Systolic Major Continental Length (4C) 5.0 cm 2.1-2.7 RA Area (4C) 17.4 cm2 <=18.0 Report Signatures
[2025-07-15 04:20] LABS: Hematocrit 46.2 % (42.0-52.0); Hemoglobin 15.6 g/dL (14.0-18.0); Mean Corpuscular HGB Conc 33.8 g/dl (32-36); Mean Corpuscular Hemoglobin 30.1 pg (26-34); Mean Corpuscular Volume 89.0 fl (80-100); Platelet Count Result 176 k/mm3 (150-375); Red Blood Count 5.19 M/mm3 (4.6-6.20); White Blood Count 7.3 K/mm3 (4.5-10.0)
[2025-07-15 04:26] LABS: Hemoglobin A1C 5.6 % (<5.7)
[2025-07-15 04:30] LABS: Alanine Aminotransferase 43 U/L (6-50); Albumin Level 3.8 g/dL (3.5-5.1); Alkaline Phosphatase 55 U/L (38-126); Anion Gap 5 mmol/L (4-12); Aspartate Amino Transferase 27 U/L (17-59); Bilirubin,Total 0.8 mg/dL (0.2-1.3); Blood Urea Nitrogen 10 mg/dL (9-20); Calcium 8.8 mg/dL (8.4-10.2); Carbon Dioxide 27 mmol/L (22-30); Chloride 105 mmol/L (98-107); Cholesterol 167 mg/dL (0-200); Estimated CRCL calculation 154 ml/min; Estimated Glomerular Filt Rate > 60; Glucose 112 mg/dL (65-110); HDL Direct 35 mg/dL; Potassium 4.2 mmol/L (3.4-5.0); Sodium 137 mmol/L (137-145); Total Protein 6.6 g/dL (6.3-8.2); Triglycerides 65 mg/dL (<150)
--- NOTE | 2025-07-15 08:57 | PM.PNCARD ---
Progress Note: A&P Assessment and Plan (1) Chest pain: Code(s): R07.9 - Chest pain, unspecified Status: Acute Assessment and Plan: Atypical chest pain. He has been ruled out for acute VT with negative serial troponin levels. His EKG did show diffuse ST elevation which likely represents early repolarization given the lack of anginal chest pain and negative cardiac enzymes. His symptoms are atypical and not consistent with accelerating angina, therefore we will continue with the plan for outpatient angiogram at [facility] next week. Plan discussed with Dr. Briones who is his established cardiolgoist. He is feeling improved this am. Can trial anti-inflammatory medications for symptoms as concern for pericarditis. Would add Toprol XL 25 mg daily and Crestor 10 mg daily. Plan Plan is for continued medical management as discussed with patient He wishes to go home today and plan for cath on OP basis as scheduled Will add Toprol XL and Crestor 10 mg daily Subjective Date/time seen: 07/15/25 08:57 Interval history: Date of service 07/15/25: Patient sitting up in bed feeling somewhat improved this am. He still reports discomfort in the chest with deep inspiration and feeling as though he cannot take a deep breath in. Review of Systems Review of Systems: All systems reviewed & are unremarkable except as noted in HPI and below Exam Narrative: General: A&O x 3. NAD Neck: No JVD Respiratory: CTAB CV: S1, S2 regular. No murmurs, rubs or gallops GI: abd obese. Non-tender Ext: no edema Objective Data Vital Signs Vital Signs: Vital Signs - 24 hr 07/14/25 10:00 07/14/25 12:00 07/14/25 12:00 Temperature 36.4 C L Pulse Rate 68 67 Respiratory Rate 20 Blood Pressure 129/80 Pulse Oximetry 97 Oxygen Delivery Room Air 07/14/25 12:00 07/14/25 14:00 07/14/25 16:00 Temperature 36.6 C Pulse Rate 68 76 72 Respiratory Rate 12 Blood Pressure 142/83 H Pulse Oximetry 97 Oxygen Delivery 07/14/25 16:00 07/14/25 16:00 07/14/25 20:00 Temperature Pulse Rate 69 77 Respiratory Rate Blood Pressure Pulse Oximetry Oxygen Delivery Room Air 07/14/25 20:00 07/14/25 20:26 07/14/25 22:00 Temperature 36.7 C Pulse Rate 77 71 68 Respiratory Rate 16 16 Blood Pressure 132/80 Pulse Oximetry 98 98 Oxygen Delivery Room Air 07/14/25 23:37 07/15/25 00:00 07/15/25 00:00 Temperature 37.0 C Pulse Rate 72 67 67 Respiratory Rate 15 15 Blood Pressure 131/75 Pulse Oximetry 97 97 Oxygen Delivery CPAP 07/15/25 01:50 07/15/25 02:00 07/15/25 04:00 Temperature Pulse Rate 64 60 Respiratory Rate 16 18 Blood Pressure Pulse Oximetry 98 Oxygen Delivery Autopap Autopap 07/15/25 04:00 07/15/25 04:26 07/15/25 06:00 Temperature 37.1 C Pulse Rate 60 61 62 Respiratory Rate 18 Blood Pressure 131/77 Pulse Oximetry 98 Oxygen Delivery 07/15/25 08:54 Temperature Pulse Rate 64 Respiratory Rate 14 Blood Pressure Pulse Oximetry 98 Oxygen Delivery Room Air Intake/Output Intake/Output: Intake & Output 07/12/25 07/13/25 07/14/25 07/15/25 23:59 23:59 23:59 23:59 Intake Total 1170 Output Total 0 Balance 1170 Meds/Results Medications: Active Medications Generic Name Dose Route Start Last Admin Trade Name Freq PRN Reason Stop Dose Admin Aspirin 81 mg 07/14/25 08:00 07/14/25 09:14 Aspirin 81 Mg Chewable Tablet PO 81 mg DAILY@0800 SERGIO Administration Enoxaparin Sodium 40 mg 07/15/25 09:00 Enoxaparin 40 Mg/0.4 Ml Syringe SUB-Q DAILY [facility] Nitroglycerin 0.4 mg 07/14/25 00:38 07/14/25 01:19 Nitroglycerin Sl 0.4 Mg Tablet SUBLINGUAL 0.4 mg Q5MIN PRN Administration Chest Pain Ondansetron HCl 4 mg 07/14/25 00:38 Ondansetron Inj 4 Mg/2 Ml Vial IV PUSH Q4H PRN Nausea Perflutren Lipid Microsphere 0 ml 07/14/25 16:19 Perflutren Lipid Microspheres 1.5 Ml Vial Diluted To 10 Ml Total Volume IV PUSH 07/17/25 16:19 ONCE PRN adequate visualization Protocol Radiology Results: ITS Impressions Chest X-Ray 07/14/25 06:40 IMPRESSION: 1. No acute cardiopulmonary findings. Labs Labs: Laboratory Results - last 24 hr 07/14/25 07/15/25 08:45 04:10 WBC 7.3 RBC 5.19 Hgb 15.6 Hct 46.2 MCV 89.0 MCH 30.1 MCHC 33.8 RDW 12.9 Plt Count 176 MPV 9.5 ESR 17 Sodium 137 Potassium 4.2 Chloride 105 Carbon Dioxide 27 Anion Gap 5 BUN 10 Creatinine 0.79 Estim Creat Clear Calc 154 Estimated GFR > 60 Glucose 112 H Hemoglobin A1c 5.6 Calcium 8.8 Total Bilirubin 0.8 AST 27 ALT 43 Alkaline Phosphatase 55 Troponin I < 0.012 C-Reactive Protein 0.8 Total Protein 6.6 Albumin 3.8 Triglycerides 65 Cholesterol 167 LDL Cholesterol Direct 104 HDL Direct 35
[2025-07-15] MEDS: ENOXAPARIN 40 MG/0.4 ML SYRINGE SUB-Q (09:00)
[2025-07-15] MEDS: ASPIRIN 81 MG CHEWABLE TABLET PO (09:00)
[2025-07-15] MEDS: PERFLUTREN LIPID MICROSPHERES 1.5 ML VIAL DILUTED TO 10 ML TOTAL VOLUME IV PUSH (10:46)
--- NOTE | 2025-07-15 10:46 | IVDEFINITY ---
Prior to administration of IV Definity the patient was educated on the risks and benefits of the imaging enhancing agent including potential adverse side effects. The patient verbalized understanding. Allergies were verified. No exclusion criteria were identified and at least one of the following inclusion criteria were met: 1) physician request, 2) patient technically difficult to image (per the [place] [employer] guidelines of two or more segments not discernable within the apical view), or 3) questionable left ventricular function. ?
--- NOTE | 2025-07-15 14:20 | PM.DS ---
DS: Admitting Diagnosis Discharge Date 07/15/2025 Admitting Diagnosis Atypical Chest Pain DS: Discharge Diagnosis Discharge Diagnosis (1) Chest pain: Code(s): R07.9 - Chest pain, unspecified Status: Acute Assessment and Plan: Atypical chest pain Obstructive sleep apnea managed with CPAP Nuclear stress test positive for reversible ischemia Schedule a coronary angiogram at [facility] next week Ordered echocardiogram- normal Discussed with Dr. Briones by cardiology team History of Conrad arrhythmia and permanent pacemaker EKG shows diffuse ST elevation- element of pericarditis possibly Tropes negative (2) Sleep apnea: Code(s): G47.30 - Sleep apnea, unspecified Status: Acute Assessment and Plan: Continue CPAP Plan Code full code DVT prophylaxis: Lovenox 40 mg subQ Disposition: Pending echo and possible discharge tomorrow DS: Summary Hospital Course Hospital Course: Patient is a 44-year-old male with a past medical history of symptomatic Bradyarrhythmias, permanent pacemaker, stent in the bilateral legs, spinal fusion, disc replacement C5-C6, smoking, obesity, obstructive sleep apnea, and presents to the ED because of chest pain. The patient reports that he has experienced shortness of breath for about a month. Patient reports that he follows up with the PCP, Dr. Torres, who advised him to see a supervisor electrolytic tinning regarding his shortness of breath and chest pain. Patient saw Dr. Carmona, who suggested doing a nuclear stress test, which showed a small area of reversible ischemia, and advised following up with a coronary angiogram at [facility] next week. Meanwhile, yesterday, the patient was watching a game after eating at [employer]. The patient had chest pain associated with shortness of breath, and his BP was elevated to 160s as advised by his . The patient came to the ED. In the ED Trops were negative and patient had evidence of diffuse ST elevation. Cardiac was consulted. is his primary supervisor electrolytic tinning. Cardiology was consulted, and acute [place] has been ruled out given normal troponin levels. Diffuse ST elevations likely not ischemic in nature, and patient has been improving since admission. Echo was ordered and done, which has returned normal. As such, patient can proceed with outpatient cardiac cath with his primary team next week as prior planned. Status at Discharge Cognitive/behavioral status at discharge: stable Time Spent with Patient Time attestation: Total time spent providing and/or coordinating discharge services: Exam Narrative: GENERAL: Well-appearing, well-nourished, and in no acute distress. HEAD: Normocephalic, atraumatic. EYES: PERRLA and EOMI. ENT: Nares clear, no rhinorrhea or epistaxis. Mucous membranes moist. NECK: Supple. CHEST: Clear to auscultation. No respiratory distress. HEART: Regular rate and rhythm. No murmur heard. Normal peripheral pulses. ABDOMEN: Soft, nontender, nondistended, normal active bowel sounds. EXTREMITIES: Normal range of motion. No edema. SKIN: Warm, dry, no rash. NEURO: No focal deficits. Alert and oriented x3. PSYCH: Normal mood and affect. Const: General: comfortable, no acute distress, alert and awake Orientation/consciousness: patient oriented x3 Other: Obese HENMT: Head: normal to inspection Eyes: General: appearance normal, both eyes and all related structures Pupils: Equal, round and reactive pupils present Neck: Neck: normal visual inspection, supple and no JVD Carotids: normal carotid upstroke Resp: Effort & Inspection: normal respiratory effort Auscultation: clear to auscultation bilaterally Cardio: Rate: regular rate Rhythm: regular rhythm Heart sounds: S1 normal heart sound present, S2 normal heart sound present and no murmurs Other: no reproducible chest wall pain to palpation GI: Auscultation: normal bowel sounds Skin: General skin exam: normal color Neuro: General: patient oriented x3 Cranial nerves: Yes Equal, round and reactive pupils present Extrem: General: normal to inspection Psych: Appearance: grossly normal Mental Status: mental status grossly normal DS: Data Data Completed and Pending Labs on day of discharge: Labs from last 24 hours 07/15/25 04:10 WBC 7.3 RBC 5.19 Hgb 15.6 Hct 46.2 MCV 89.0 MCH 30.1 MCHC 33.8 RDW 12.9 Plt Count 176 MPV 9.5 Sodium 137 Potassium 4.2 Chloride 105 Carbon Dioxide 27 Anion Gap 5 BUN 10 Creatinine 0.79 Estim Creat Clear Calc 154 Estimated GFR > 60 Glucose 112 H Hemoglobin A1c 5.6 Calcium 8.8 Total Bilirubin 0.8 AST 27 ALT 43 Alkaline Phosphatase 55 Total Protein 6.6 Albumin 3.8 Triglycerides 65 Cholesterol 167 LDL Cholesterol Direct 104 HDL Direct 35 Discharge Plan Discharge Attending physician on discharge: Javier Ga Oca Consulting providers: George Markham Discharging Clinician: Javier Ga Oca Patient Disposition: Home Activity: as tolerated Diet: heart healthy Patient Instructions: Antibiotic Form Patient Language: Bahamian Stand Alone Forms: General Discharge Information Follow-up/Referrals: Joshua Briones MD [Physician, Cardiology] Discharge Medications: New aspirin [Children's Aspirin] 81 mg Tablet,Chewable 81 mg PO DAILY@0800 30 Days Qty: 30 0RF nitroglycerin [Nitrostat] 0.4 mg Tablet, Sublingual 0.4 mg sublingual Q5MIN PRN (Reason: Chest Pain) 30 Days Qty: 20 0RF rosuvastatin [Crestor] 10 mg Tablet 10 mg PO QAM 30 Days Qty: 30 0RF metoprolol succinate [Toprol XL] 25 mg tablet extended release 24 hr 25 mg PO DAILY 30 Days Qty: 30 0RF No Action No Home Medications Date of admission: 07/14/25 00:39 Primary Care Provider: Warren,Carole Admitting Provider: Razia Esteves Attending physician on admission: Razia Esteves Condition: Stable
== END 2025-07-15 15:51 | disposition home or self-care (01) ==
LOC: ANHED 23:48 → ANHIMU 07-14 16:04
PROVIDERS: General Practice; Admitting Provider General Practice; Emergency Provider Emergency Medicine; PCP Nurse Practitioner Family; Visit Provider Student in an Organized Health Care Education/Training Program
DX: R07.89 Other chest pain (principal); R06.02 Shortness of breath; F17.210 Nicotine dependence, cigarettes, uncomplicated; Z95.0 Presence of cardiac pacemaker; Z98.1 Arthrodesis status; G47.33 Obstructive sleep apnea (adult) (pediatric); Z99.89 Dependence on other enabling machines and devices; E66.9 Obesity, unspecified; Z68.41 Body mass index [BMI] 40.0-44.9, adult
CPT/HCPCS: 36415; 71046; 80053; 80061; 83036; 83690; 83880; 84484; 85025; 85027; 85610; 85652; 85730; 86140; 93005; 96372; 96374; 99285; A9270; C8929; G0378; J1650; Q9957